=== PATIENT | female | born 1935 | race Caucasian/White ===

== ENCOUNTER 2019-01-03 10:29 | Inpatient (IN) ==
--- NOTE | 2019-01-03 10:36 | Emergency Department Note ---
Disposition Clinical Impression: NSTEMI (non-ST elevated myocardial infarction) CHF exacerbation Qualifiers: Heart failure type: unspecified Qualified Code(s): I50.9 - Heart failure, unspecified Bilateral pneumonia Qualifiers: Pneumonia type: due to unspecified organism Lung location: lower lobe of lung Qualified Code(s): J18.1 - Lobar pneumonia, unspecified organism Disposition: Admitted As Inpatient Referrals: NONE,PCP [Primary Care Provider] - Time of Disposition: 13:37 General Adult HPI - General Stated complaint: EMORY Time Seen by Provider: 01/03/19 10:31 Nursing Notes Reviewed: Yes Vital Signs Reviewed: Yes - History of Present Illness HPI Narrative: 83-year-old female presents emergency department with concern for not feeling well and having chest pain, shortness of breath, inability to lie flat or last few days. Patient when asked about her medical history, states she does not know her medical problems. States that she has seen her doctor in 3 years. Patient states that the chest pain is pleuritic in nature. It does not radiate anywhere. Patient denies any nausea, vomiting, diaphoresis. She does report some mild sputum production, as well as cough, but denies any fever. She does report history of smoking. Patient concerned that her lower extremities are little more swollen than normal. - Related Data Home Medications Medication Instructions Recorded Confirmed No Known Home Drugs 01/03/19 01/03/19 Allergies Allergy/AdvReac Type Severity Reaction Status Date / Time Penicillins [PCN] Allergy Hives Verified 01/03/19 10:44 All systems ED: reviewed and negative except as stated. Review of Systems: As Per HPI Constitutional: Denies: fever Cardiovascular: Reports: chest pain Respiratory: Reports: cough, dyspnea, sputum production Gastrointestinal: Denies: abdominal pain, nausea, vomiting Genitourinary: Denies: dysuria Endocrine: Reports: fatigue Past Medical History - Past Medical History Attestation: Yes The following information was validated with the patient. Medical history: Reports: hypertension Course Vital Signs Temperature 98.2 F 01/03/19 10:40 Pulse Rate 112 01/03/19 10:40 Respiratory Rate 18 01/03/19 10:40 Blood Pressure 134/110 01/03/19 10:40 O2 Sat by Pulse Oximetry 98 01/03/19 10:40 Temperature 98.2 F 01/03/19 10:40 Pulse Rate 98 01/03/19 12:30 Respiratory Rate 16 01/03/19 12:30 Blood Pressure 131/89 01/03/19 12:30 O2 Sat by Pulse Oximetry 98 01/03/19 12:30 Oxygen Delivery Oxygen Delivery Room Air Medical Decision Making - MDM Narrative Medical decision making narrative: 83-year-old female presents emergency department with concern for increasing chest pain, shortness of breath over the last few days. Patient has ST depressions in the lateral leads that are new from previous ECG. Patient was given aspirin here in the emergency department. Chest troponin that was elevated as well as a BNP that was elevated. Obtained a CT angiogram which reveals bilateral pleural effusions with pneumonia is a consideration. Patient has history of smoking. No wheezes on initial lung exam. Believe that patient has evidence of pneumonia with increasing cough and sputum production in the setting of probable COPD as she has been a long-term smoker. We have given Levaquin as well as steroids. Patient was given only one DuoNeb and there is no wheezes on lung exam and patient with ACS, did not want increased demand. Patient was given Lasix here in the emergency department. I spoke with the shipping services sales representative, Dr. Jackson who agreed to be consolable the case. Recommended heparin. Patient has no history of bleeding. Discussed this with family. Patient hemodynamically stable not in acute distress time of admission to the hospitalist Dr. Fung. Chest X-Ray 01/03/19 10:35 IMPRESSION: Probable pulmonary venous hypertension with small left larger than right pleural effusions. Asymmetric airspace disease in the left lung base may represent atelectasis or concurrent pneumonia D/ / Mohinder Chu MD / Mohinder Chu MD Interpreting Provider: Mohinder Chu MD Chest CTA 01/03/19 12:09 IMPRESSION: 1. No pulmonary embolism. 2. Bibasilar consolidation and bilateral pleural effusion; pneumonia is a consideration. 3. Mild mediastinal and right hilar lymph node enlargement presumably reactive. Attention to this on follow-up IV contrast-enhanced CT chest imaging recommended in about 3 months. 4. Emphysema. 5. Cardiomegaly. 6. Calcific atherosclerosis aorta and coronary arteries. 7. Age-indeterminate approximately 60% anterior wedge compression fracture T12. The D/ / Acosta Adams / Acosta Adams Interpreting Provider: Acosta Adams - Lab Data Result diagrams: 01/03/19 10:55 01/03/19 10:55 Lab Results 01/03/19 01/03/19 01/03/19 Range/Units 10:55 10:55 10:55 WBC 4.9 (4.3-11.1) K/mcL RBC 3.31 L (3.82-4.97) M/mcL Hgb 10.5 L (11.5-15.4) g/dL Hct 32.0 L (35.3-44.9) % MCV 96.7 (83.0-100.0) fL MCH 31.7 (28.0-33.3) pg MCHC 32.8 (31.6-35.5) g/dL RDW 12.4 (11.5-14.5) % Plt Count 142 (140-400) K/mcL MPV 10.2 (9.4-12.4) fL Immature Gran % 0.0 (0-4) % Seg Neutrophils % 63.1 % Lymphocytes % 27.6 % Monocytes % 8.3 % Eosinophils % 0.6 % Basophils % 0.4 % Neutrophils # 3.1 (1.6-8.9) K/mcL Lymphocytes # 1.4 (0.6-4.6) K/mcL Monocytes # 0.4 (0.0-1.3) K/mcL Eosinophils # 0.0 (0.0-0.6) K/mcL Basophils # 0.0 (0.0-0.2) K/mcL D-Dimer (0-500) ng/mLFEU Sodium 132 L (136-145) mEq/L Potassium 3.5 (3.5-5.1) mEq/L Chloride 97 L (98-107) mEq/L Carbon Dioxide 26 (23-29) mEq/L BUN 16 (8-23) mg/dL Creatinine 0.65 (0.60-1.20) mg/dL Est GFR ( Amer) > 60 (> 60) Est GFR (Non-Af Amer) > 60 (> 60) BUN/Creatinine Ratio 25 (6-26) Glucose 146 H (70-105) mg/dL Calculated Osmolality 278 L (280-300) Calcium 8.8 (8.6-10.3) mg/dL Troponin I 0.07 H* (< 0.04) ng/mL B-Natriuretic Peptide 821 H (Less than 100) pg/mL TSH 3.523 (0.340-5.600) mcIU/mL 01/03/19 Range/Units 10:55 WBC (4.3-11.1) K/mcL RBC (3.82-4.97) M/mcL Hgb (11.5-15.4) g/dL Hct (35.3-44.9) % MCV (83.0-100.0) fL MCH (28.0-33.3) pg MCHC (31.6-35.5) g/dL RDW (11.5-14.5) % Plt Count (140-400) K/mcL MPV (9.4-12.4) fL Immature Gran % (0-4) % Seg Neutrophils % % Lymphocytes % % Monocytes % % Eosinophils % % Basophils % % Neutrophils # (1.6-8.9) K/mcL Lymphocytes # (0.6-4.6) K/mcL Monocytes # (0.0-1.3) K/mcL Eosinophils # (0.0-0.6) K/mcL Basophils # (0.0-0.2) K/mcL D-Dimer 6672 H (0-500) ng/mLFEU Sodium (136-145) mEq/L Potassium (3.5-5.1) mEq/L Chloride (98-107) mEq/L Carbon Dioxide (23-29) mEq/L BUN (8-23) mg/dL Creatinine (0.60-1.20) mg/dL Est GFR ( Amer) (> 60) Est GFR (Non-Af Amer) (> 60) BUN/Creatinine Ratio (6-26) Glucose (70-105) mg/dL Calculated Osmolality (280-300) Calcium (8.6-10.3) mg/dL Troponin I (< 0.04) ng/mL B-Natriuretic Peptide (Less than 100) pg/mL TSH (0.340-5.600) mcIU/mL - EKG Data EKG #1 EKG attestation: Yes I reviewed and interpreted this EKG. EKG results narrative: 10:40 Heart rate 109 bpm, MS interval 136.6, QRS duration 83 ms, QT 332 ms, left axis deviation. Sinus tachycardia with
[2019-01-03] MEDS ORDERED: *HR* FentaNYL (PF) 100 MCG/2 ML VIAL IVP ONE (11:00)
[2019-01-03] MEDS ORDERED: Ondansetron 4 MG/2 ML VIAL IVP ONE (11:05)
[2019-01-03] MEDS ORDERED: Aspirin 81 MG TAB.CHEW PO ONE (11:05)
[2019-01-03 11:22] LABS: Basophils % 0.4 %; Eosinophils % 0.6 %; Hemoglobin 10.5 g/dL (11.5-15.4); Lymphocytes # 1.4 K/mcL (0.6-4.6); Lymphocytes % 27.6 %; Mean Corpuscular HGB Conc 32.8 g/dL (31.6-35.5); Mean Corpuscular Hemoglobin 31.7 pg (28.0-33.3); Mean Corpuscular Volume 96.7 fL (83.0-100.0); Mean Platelet Volume 10.2 fL (9.4-12.4); Monocytes # 0.4 K/mcL (0.0-1.3); Monocytes % 8.3 %; Neutrophils # 3.1 K/mcL (1.6-8.9); Platelet Count 142 K/mcL (140-400); Red Blood Count 3.31 M/mcL (3.82-4.97); Red Cell Distribution Width 12.4 % (11.5-14.5); Segmented Neutrophils % 63.1 %; White Blood Count 4.9 K/mcL (4.3-11.1)
[2019-01-03 11:40] LABS: BUN/Creatinine Ratio 25 (6-26); Blood Urea Nitrogen 16 mg/dL (8-23); Calcium 8.8 mg/dL (8.6-10.3); Carbon Dioxide 26 mEq/L (23-29); Chloride 97 mEq/L (98-107); Glucose 146 mg/dL (70-105); Osmolality,Calculated 278 (280-300); Potassium 3.5 mEq/L (3.5-5.1); Sodium 132 mEq/L (136-145); eGFR For African Americans > 60 (> 60); eGFR For Non-African Americans > 60 (> 60)
[2019-01-03 11:44] LABS: Troponin I 0.07 ng/mL (< 0.04)
[2019-01-03 11:59] LABS: Thyroid Stimulating Hormone 3.523 mcIU/mL (0.340-5.600)
[2019-01-03] MEDS ORDERED: Isovue-370 500 ML BOTTLE IVP ONE (12:09)
[2019-01-03] MEDS ORDERED: Furosemide 40 MG/4 ML VIAL IVP ONE (13:23)
[2019-01-03] MEDS ORDERED: levoFLOXacin 750 MG/150 ML 750 MG/150 ML BAG IVPB ONE (13:27)
[2019-01-03] MEDS ORDERED: *HR* Heparin 5,000 UNIT/ML VIAL IVP ONE (13:34)
[2019-01-03] MEDS ORDERED: *HR* Heparin 5,000 UNIT/ML VIAL IVP PRN (13:34)
[2019-01-03] MEDS ORDERED: methylPREDNISolone 125 MG/2 ML VIAL IVP ONE (13:36)
[2019-01-03] MEDS ORDERED: Ipratropium/Albuterol Neb 3 ML IH ONE (13:40)
[2019-01-03] MEDS: Heparin 25,000 UNIT/250 ML D5W 25,000 UNIT/250 ML IV.SOLN IVC SCH (13:54)
[2019-01-03 14:03] LABS: Hematocrit 29.2 % (35.3-44.9); Hemoglobin 9.6 g/dL (11.5-15.4); Mean Corpuscular HGB Conc 32.9 g/dL (31.6-35.5); Mean Corpuscular Hemoglobin 31.5 pg (28.0-33.3); Mean Corpuscular Volume 95.7 fL (83.0-100.0); Platelet Count 127 K/mcL (140-400); Red Blood Count 3.05 M/mcL (3.82-4.97); Red Cell Distribution Width 12.4 % (11.5-14.5); White Blood Count 4.5 K/mcL (4.3-11.1)
--- NOTE | 2019-01-03 14:08 | Emergency Department Note ---
Disposition Clinical Impression: NSTEMI (non-ST elevated myocardial infarction) CHF exacerbation Qualifiers: Heart failure type: unspecified Qualified Code(s): I50.9 - Heart failure, unspecified Bilateral pneumonia Qualifiers: Pneumonia type: due to unspecified organism Lung location: lower lobe of lung Qualified Code(s): J18.1 - Lobar pneumonia, unspecified organism Disposition: Admitted As Inpatient Time of Disposition: 14:08 General Adult HPI - General Chief complaint: ED Shortness of Breath/Dyspnea Stated complaint: EMORY Time Seen by Provider: 01/03/19 10:31 Source: patient, EMS - History of Present Illness Pain Scale: 7 - Related Data Home Medications Medication Instructions Recorded Confirmed No Known Home Drugs 01/03/19 01/03/19 Allergies Allergy/AdvReac Type Severity Reaction Status Date / Time Penicillins [PCN] Allergy Hives Verified 01/03/19 10:44 Constitutional: Denies: fever Cardiovascular: Reports: chest pain Respiratory: Reports: cough, dyspnea, sputum production Gastrointestinal: Denies: abdominal pain, nausea, vomiting Genitourinary: Denies: dysuria Endocrine: Reports: fatigue Past Medical History - Past Medical History Medical history: Reports: hypertension - Social History Smoking Status: Current every day smoker Alcohol use: Reports: none Drug use: Reports: none Physical Exam - General General appearance: alert Course Vital Signs Temperature 98.2 F 01/03/19 10:40 Pulse Rate 112 01/03/19 10:40 Respiratory Rate 18 01/03/19 10:40 Blood Pressure 134/110 01/03/19 10:40 O2 Sat by Pulse Oximetry 98 01/03/19 10:40 Temperature 98.2 F 01/03/19 10:40 Pulse Rate 98 01/03/19 12:30 Respiratory Rate 16 01/03/19 12:30 Blood Pressure 131/89 01/03/19 12:30 O2 Sat by Pulse Oximetry 98 01/03/19 12:30 Oxygen Delivery Oxygen Delivery Room Air Medical Decision Making - Lab Data Result diagrams: 01/03/19 13:45 01/03/19 10:55 Lab Results 01/03/19 01/03/19 01/03/19 Range/Units 10:55 10:55 10:55 WBC 4.9 (4.3-11.1) K/mcL RBC 3.31 L (3.82-4.97) M/mcL Hgb 10.5 L (11.5-15.4) g/dL Hct 32.0 L (35.3-44.9) % MCV 96.7 (83.0-100.0) fL MCH 31.7 (28.0-33.3) pg MCHC 32.8 (31.6-35.5) g/dL RDW 12.4 (11.5-14.5) % Plt Count 142 (140-400) K/mcL MPV 10.2 (9.4-12.4) fL Immature Gran % 0.0 (0-4) % Seg Neutrophils % 63.1 % Lymphocytes % 27.6 % Monocytes % 8.3 % Eosinophils % 0.6 % Basophils % 0.4 % Neutrophils # 3.1 (1.6-8.9) K/mcL Lymphocytes # 1.4 (0.6-4.6) K/mcL Monocytes # 0.4 (0.0-1.3) K/mcL Eosinophils # 0.0 (0.0-0.6) K/mcL Basophils # 0.0 (0.0-0.2) K/mcL D-Dimer (0-500) ng/mLFEU Sodium 132 L (136-145) mEq/L Potassium 3.5 (3.5-5.1) mEq/L Chloride 97 L (98-107) mEq/L Carbon Dioxide 26 (23-29) mEq/L BUN 16 (8-23) mg/dL Creatinine 0.65 (0.60-1.20) mg/dL Est GFR ( Amer) > 60 (> 60) Est GFR (Non-Af Amer) > 60 (> 60) BUN/Creatinine Ratio 25 (6-26) Glucose 146 H (70-105) mg/dL Calculated Osmolality 278 L (280-300) Calcium 8.8 (8.6-10.3) mg/dL Troponin I 0.07 H* (< 0.04) ng/mL B-Natriuretic Peptide 821 H (Less than 100) pg/mL TSH 3.523 (0.340-5.600) mcIU/mL 01/03/19 Range/Units 10:55 WBC (4.3-11.1) K/mcL RBC (3.82-4.97) M/mcL Hgb (11.5-15.4) g/dL Hct (35.3-44.9) % MCV (83.0-100.0) fL MCH (28.0-33.3) pg MCHC (31.6-35.5) g/dL RDW (11.5-14.5) % Plt Count (140-400) K/mcL MPV (9.4-12.4) fL Immature Gran % (0-4) % Seg Neutrophils % % Lymphocytes % % Monocytes % % Eosinophils % % Basophils % % Neutrophils # (1.6-8.9) K/mcL Lymphocytes # (0.6-4.6) K/mcL Monocytes # (0.0-1.3) K/mcL Eosinophils # (0.0-0.6) K/mcL Basophils # (0.0-0.2) K/mcL D-Dimer 6672 H (0-500) ng/mLFEU Sodium (136-145) mEq/L Potassium (3.5-5.1) mEq/L Chloride (98-107) mEq/L Carbon Dioxide (23-29) mEq/L BUN (8-23) mg/dL Creatinine (0.60-1.20) mg/dL Est GFR ( Amer) (> 60) Est GFR (Non-Af Amer) (> 60) BUN/Creatinine Ratio (6-26) Glucose (70-105) mg/dL Calculated Osmolality (280-300) Calcium (8.6-10.3) mg/dL Troponin I (< 0.04) ng/mL B-Natriuretic Peptide (Less than 100) pg/mL TSH (0.340-5.600) mcIU/mL Attestation Statement - Attestation Attestation: I reviewed the residents documentation and agree with the residents assessment and plan of care. I have personally had face to face time with the patient. (Brief History, Brief Exam, and MDM) I personally supervised and was present for the rincon/critical portions of the following procedures completed by the resident: EKG 83 yaer old female presents to the ED with complaints chest pain that is pleuritic. She has new ischemic changes with St depressions in V4-6 and an elevated troponin and new pneumonia with elevated BNP. Consulted with cards and they recommend heparin at this time. Admitted to medicine with ABX coverage
[2019-01-03 14:12] LABS: INR 1.1; Prothrombin Time 12.6 Seconds (9.4-12.1)
--- NOTE | 2019-01-03 14:36 | Cardiology Consult Note ---
<Radha Mcfarlane N - Last Filed: 01/03/19 15:19> Date of Encounter: 01/03/19 Time of Encounter: 14:33 Assessment and Plan (1) Elevated troponin Current Visit: Yes Status: Acute Mildly elevated troponin of 0.07 in setting of CHF exacerbation. Concern for ACS/NSTEMI vs. demand ischemia. Patient reports pleuritic chest pain that coincides with onset of her respiratory symptoms. ECG showed ST changes in lateral leads, with T-wave inversions in V4-V6 and changes in V3 that were not present on previous exams. Recommend repeat ECG stat to evaluate for signs of ongoing cardiac ischemia. Trend troponins x3. Continue heparin gtt. NPO order placed to start at midnight in case further cardiac testing is indicated (2) Acute decompensated heart failure Current Visit: Yes Status: Acute Suspect acute exacerbation of CHF in setting of bilateral pneumonia. CXR was significant for probable pulmonary venous hypertension with small left larger than right pleural effusions. Asymmetric airspace disease in the left lung base may represent atelectasis or concurrent pneumonia. CTA demonstrated additional findings of cardiomegaly, as well as calcific atherosclerosis aorta and coronary arteries. BNP was noted to be elevated at 821. Recommend fluid restriction diet, strict I/Os, and diuresis as tolerated. Echocardiogram pending. (3) Hypertension Current Visit: Yes Status: Acute History of hypertension. Review of outpatient records show home mediations of metoprolol ER 50mg and losartan 25mg; however, patient denies any current home medications. Continue to monitor BP at this time, as it is WNL. Anticipate initiation of antihypertensive therapy if patient becomes hypertensive. Qualifiers: Hypertension type: unspecified Qualified Code(s): I10 - Essential (primary) hypertension (4) Bilateral pneumonia Current Visit: Yes Status: Suspected CTA suspicious for acute bilateral pneumonia. Antibiotic therapy per primary team. Qualifiers: Pneumonia type: due to unspecified organism Lung location: lower lobe of lung Qualified Code(s): J18.1 - Lobar pneumonia, unspecified organism Discussion w patient/family: The assessment and plan as outlined above was discussed with the patient and/or family members who expressed understanding and agreement. All questions were answered. Thank you for involving us in the care of your patient. Please call with any questions. History of Present Illness Consult date: 01/03/19 Requesting physician: Isai Troy Consult reason: NSTEMI Chief complaint: Shortness of breath History of present illness: Ms. Díaz is a 83 year old female with a history of hypertension who presented to the ED for evaluation of shortness of breath. Patient states that her symptoms started on Monday when she noticed that she felt short of breath when lying flat, which has progressively worsened. She also reports bilateral lower extremity edema that is worse in the left leg. She states that she is unable to take a deep breath due to chest pain/discomfort. She denies chest pain at rest, but does endorse palpitations. She states that she has never had symptoms like this before, and has had to sleep sitting up due to orthopnea the last few nights. Patient has not been seen by a physician in several years, and recently stopped taking her mediations because she "wants to ". She states that she is unable to do chores around the house other than picking up the newspaper, and states "my house is filthy". ED workup was significant for mildly elevated troponin of 0.07, BNP 821, and d-dimer 6672. CTA of the chest was significant for bibasilar consolidation and bilateral pleural effusion, as well as mediastinal and right hilar lymph node enlargement, emphysema, cardiomegaly, and calcific atherosclerosis aorta and coronary arteries. Patient was started on a heparin gtt due to concern for NSTEMI and admitted to the hospitalist service for ongoing workup and management. Cardiology consult placed for recommendations regarding NSTEMI. Past Med Surg Social Fam HX - Past Medical History Medical history: hypertension Additional medical history: pt states "i don't know" - Social History Smoking Status: Current every day smoker Packs per day: 1 PPD x 70 years Smokeless Tobacco Status: No Alcohol use: none Drug use: none Medications and Allergies Losartan Potassium [Cozaar] 50 mg PO DAILY 01/03/19 [History] Metoprolol Succinate [Toprol Xl] 50 mg PO DAILY 01/03/19 [History] Allergy/AdvReac Type Severity Reaction Status Date / Time Penicillins [PCN] Allergy Hives Verified 01/03/19 10:44 All Systems Review: The remainder of the systems were reviewed and are negative - Constitutional Constitutional: fatigue, no fever(s) - Cardiovascular Cardiovascular: diaphoresis, dyspnea at rest, leg edema, orthopnea, palpitations, no chest pain at rest, no chest pain with exertion, no irregular heart rhythm - Respiratory Respiratory: dyspnea Physical Examination Vital Signs, Last 4 Hours Temp Pulse Resp BP Pulse Ox 01/03/19 14:09 96 16 124/79 97 01/03/19 12:30 98 16 131/89 98 01/03/19 11:30 105 16 147/103 95 01/03/19 10:40 98.2 F 112 18 134/110 98 General: Conversant, Other (mild distress secondary to shortness of breath) HEENT: Atraumatic, Normocephaly, Mucus Membranes Moist Cardiac: Reg Rate and Rhythm (sinus tachycardia), Normal S1 and S2, No Murmur Lungs: No Wheeze, Rales, Rhonchi, Other (diffusely decreased and shallow breath sounds bilaterally) Neuro: Alert and responsive, No focal deficits noted Abdomen: Soft, Non-Tender Skin: No rashes noted on visualized skin Musculoskeletal: No Chest Wall Tenderness Extremities: No Clubbing, No Cyanosis, Normal Pulses, Other (1+ pitting edema LLE; mild pitting edema RLE) Results 01/03/19 13:45 01/03/19 10:55 Lab Results 01/03/19 01/03/19 01/03/19 10:55 10:55 10:55 WBC 4.9 Hgb 10.5 L Hct 32.0 L Plt Count 142 D-Dimer Sodium 132 L Potassium 3.5 Chloride 97 L Carbon Dioxide 26 BUN 16 Creatinine 0.65 Glucose 146 H Calcium 8.8 Troponin I 0.07 H* B-Natriuretic Peptide 821 H TSH 3.523 01/03/19 01/03/19 10:55 13:45 WBC 4.5 Hgb 9.6 L Hct 29.2 L Plt Count 127 L D-Dimer 6672 H Sodium Potassium Chloride Carbon Dioxide BUN Creatinine Glucose Calcium Troponin I B-Natriuretic Peptide TSH Consult Discharge Plan - Plan Referrals: NONE,PCP [Primary Care Provider] - < A - Last Filed: 01/04/19 10:21> Date of Encounter: 01/04/19 - Attending Attestation I have personally performed a face to face evaluation on this patient. I have reviewed and agree with the documented findings and care plan as documented by the resident. History and Exam by me shows: 83-year-old female with past history of hypertension, poor medical follow-up, presented with progressively worsening shortness of breath associated with orthopnea and chest discomforts in the last 4 days BNP 821. Chest x-ray showed pulmonary vascular congestion AAOX3 in NAD at the bedside Hemodynamically stable Cardiopulmonary exam revealed JVD +S1, S2, grade 2/6 apical systolic murmur radiating to the axilla; bibasilar rales Abdomen - tender right upper quadrant Rhythm reviewed - sinus rhythm, T-wave inversion in anterolateral leads Echo shows LVEF of 20% with global and segmental wall motion abnormality , moderate mitral valve regurgitation Impression/plan: Cardiomyopathy. Cardiac catheterization is indicated given low EF, and NSTEMI. Patient clearly stated that she would not want invasive procedures. Besides,she expressed doubts regarding adherence to medication. We will recommend medical management in this time with aspirin 81 mg daily, once euvolemic - metoprolol succinate 25 mg daily, statin, lisinopril 2.5 mg daily. Acute systolic CHF exacerbation. Lasix 40 mg intravenously twice a day. Strict inputs and outputs monitoring. Fluid restricted low-salt diet. Thanks, Blake Espinosa MD FACC Assessment and Plan Discussion w patient/family: The assessment and plan as outlined above was discussed with the patient and/or family members who expressed understanding and agreement. All questions were answered. Thank you for involving us in the care of your patient. Please call with any questions. History of Present Illness History of present illness: Ms. Díaz is a 83 year old female All Systems Review: The remainder of the systems were reviewed and are negative Physical Examination Vital Signs, Last 4 Hours Temp Pulse BP Pulse Ox 01/04/19 07:07 97.8 F 87 116/75 97 Results 01/04/19 04:58 01/04/19 04:58 Lab Results 01/03/19 01/03/19 01/03/19 10:55 10:55 10:55 WBC 4.9 Hgb 10.5 L Hct 32.0 L Plt Count 142 INR D-Dimer Sodium 132 L Potassium 3.5 Chloride 97 L Carbon Dioxide 26 BUN 16 Creatinine 0.65 Glucose 146 H Calcium 8.8 Magnesium Total Bilirubin AST ALT Alkaline Phosphatase Troponin I 0.07 H* B-Natriuretic Peptide 821 H TSH 3.523 01/03/19 01/03/19 01/03/19 10:55 13:45 13:45 WBC 4.5 Hgb 9.6 L Hct 29.2 L Plt Count 127 L INR 1.1 D-Dimer 6672 H Sodium Potassium Chloride Carbon Dioxide BUN Creatinine Glucose Calcium Magnesium Total Bilirubin AST ALT Alkaline Phosphatase Troponin I B-Natriuretic Peptide [facility] 01/03/19 01/03/19 01/04/19 16:35 22:52 04:58 WBC Hgb Hct Plt Count INR D-Dimer Sodium Potassium Chloride Carbon Dioxide BUN Creatinine Glucose Calcium Magnesium Total Bilirubin AST ALT Alkaline Phosphatase Troponin I 0.06 H* 0.06 H* 0.05 H* B-Natriuretic Peptide [facility] 01/04/19 01/04/19 01/04/19 04:58 04:58 04:58 WBC 4.2 L Hgb 9.4 L Hct 28.4 L Plt Count 135 L INR 1.2 D-Dimer Sodium 130 L Potassium 3.6 Chloride 95 L Carbon Dioxide 26 BUN 13 Creatinine 0.65 Glucose 115 H Calcium 8.3 L Magnesium 2.1 Total Bilirubin 0.6 AST 22 ALT 17 Alkaline Phosphatase 81 Troponin I B-Natriuretic Peptide [facility]
--- NOTE | 2019-01-03 15:05 | Internal Med History&Physical ---
Date of Encounter: 01/03/19 Time of Encounter: 15:05 Internal Medicine - H&P: HPI Chief complaint: SOB Admitted From: Home Plans for Post Hospital Care: Home History of present illness: Ms. Díaz is a 83 year old female who has past medical hx of HTN, ? anxiety and depression, falls, ?syncope, who presents with progressive shortness of breath and chest pain. Pt denies prior history of [place] or CAD that she is aware of. Patient states that the chest pain is pleuritic in nature and is non- radiating. She denies N/V, abdominal pain or diarrhea. She admits to being a current smoker and has been since 14years of age. She denies hx of COPD she is aware of and she does not use oxygen at home. She states she has not been to a PCP in 4-5 years which was confirmed by her Daughter. She does not have medical DPOA and is still her own decision maker. Daughter, Karla, seems to think pt may have underlying dementia though not clinically diagnosed. Pt is alert and oriented x 3. She knows she is at [facility], the date, year, and her name and date. She admits to not liking physicians and states she stopped taking her beta radha since October 2018 because she does not like her PCP. She did say she saw Dr. Donahue for years prior to her PCP 5 years ago and liked her. She states she has not taken a shower since "September 17 2017" because her would not let her. Daughter disagrees and states the reason why she had not taken a bath was because of her hx recurrent falls/ "fainting" and not because of her father. Pt lives with her who has a hx of dementia. Pt denies any suicidal ideation or attempt. She is adamant that she does not want any heroic measures. When asked if she would like to have a heart cath she replied "HELL No!" Pt states she is agreeable to having diuretic for CHF and antibiotic for respiratory infection. In ED Cardiology was notified and pt was started on heparin. Troponin 0.07. EKG showed ST changes in lateral leads, with T-wave inversions in V4-V6 and changes in V3 that were not present on previous exams. WBC 4.5, Hgb 9.6 hct 29.2, plt 127. TSH 3.523. PT 12.6, INR 1.1, DIU984, D dimer 6672 Na 132, K 3.5, BUN 16, Cr 0.65. CT angio PE CT/CT angio chest IMPRESSION: 1. No pulmonary embolism. 2. Bibasilar consolidation and bilateral pleural effusion; pneumonia is a consideration. 3. Mild mediastinal and right hilar lymph node enlargement presumably reactive. Attention to this on follow-up IV contrast-enhanced CT chest imaging recommended in about 3 months. 4. Emphysema. 5. Cardiomegaly. 6. Calcific atherosclerosis aorta and coronary arteries. 7. Age-indeterminate approximately 60% anterior wedge compression fracture T12. The Chest x ray XR/XR chest 1V portable IMPRESSION: Probable pulmonary venous hypertension with small left larger than right pleural effusions. Asymmetric airspace disease in the left lung base may represent atelectasis or concurrent pneumonia CODE STATUS DNRCCA/DNI Past Med Surg Social Fam HX - Past Medical History Medical history: hypertension Additional medical history: pt states "i don't know" - Social History Smoking Status: Current every day smoker Alcohol use: none Drug use: none Internal Medicine - H&P: Meds Losartan Potassium [Cozaar] 50 mg PO DAILY 01/03/19 [History] Metoprolol Succinate [Toprol Xl] 50 mg PO DAILY 01/03/19 [History] Allergy/AdvReac Type Severity Reaction Status Date / Time Penicillins [PCN] Allergy Hives Verified 01/03/19 10:44 All Systems PM: A 10-system review of systems was performed and is negative for pertinent findings except as documented above in the HPI. - Constitutional Vitals: Temp Pulse Resp BP Pulse Ox 98.2 F 96 16 124/79 97 01/03/19 10:40 01/03/19 14:09 01/03/19 14:09 01/03/19 14:09 01/03/19 14:09 General appearance: Present: A&O X 3, no acute distress Exam: . - Head Head exam: Present: atraumatic, normocephalic - Eye Eye exam: Present: PERRL, conjuntiva pink, sclera anicteric Pupils: Present: PERRL - Neck Neck exam general surgery: Present: supple, trachea midline. Absent: lymphadenopathy - Respiratory Respiratory exam: Absent: accessory muscle use, CTAB, rales, rhonchi, wheezes Additional comments: Bibasilar crackles - Cardiovascular Cardiovascular exam: Present: RRR, +S1, +S2. Absent: diastolic murmur, gallop, rubs, systolic murmur - GI/Abdominal GI/Abdominal exam: Present: normal bowel sounds, soft, no peritoneal signs. Absent: distended, tenderness - Extremities Exam Extremities exam: Present: pedal edema, warm, radial pulses palpable and symmetrical. Absent: calf tenderness, cyanotic Additional comments: LE extremity dry and skin sloughing off. - Neurological Exam Neurological exam: Present: CN II-XII intact, oriented X3, no focal deficits. Absent: pronater drift, facial droop, speech deficit - Skin Skin exam: Present: dry, intact Internal Med - H&P Results - Labs CBC & Chem 7: 01/03/19 13:45 01/03/19 10:55 Labs: Short CBC 01/03/19 01/03/19 Range/Units 10:55 13:45 WBC 4.9 4.5 (4.3-11.1) K/mcL Hgb 10.5 L 9.6 L (11.5-15.4) g/dL Hct 32.0 L 29.2 L (35.3-44.9) % Plt Count 142 127 L (140-400) K/mcL Neutrophils # 3.1 (1.6-8.9) K/mcL BMP 01/03/19 10:55 Sodium 132 L Potassium 3.5 Chloride 97 L Carbon Dioxide 26 BUN 16 Creatinine 0.65 Glucose 146 H Calcium 8.8 Cardiac Enzymes 01/03/19 Range/Units 10:55 Troponin I 0.07 H* (< 0.04) ng/mL - Impressions ITS Impressions Chest X-Ray 01/03/19 10:35 IMPRESSION: Probable pulmonary venous hypertension with small left larger than right pleural effusions. Asymmetric airspace disease in the left lung base may represent atelectasis or concurrent pneumonia D/ / Mohinder Chu MD / Mohinder Chu MD Interpreting Provider: Mohinder Chu MD Chest CTA 01/03/19 12:09 IMPRESSION: 1. No pulmonary embolism. 2. Bibasilar consolidation and bilateral pleural effusion; pneumonia is a consideration. 3. Mild mediastinal and right hilar lymph node enlargement presumably reactive. Attention to this on follow-up IV contrast-enhanced CT chest imaging recommended in about 3 months. 4. Emphysema. 5. Cardiomegaly. 6. Calcific atherosclerosis aorta and coronary arteries. 7. Age-indeterminate approximately 60% anterior wedge compression fracture T12. The D/ / Acosta Adams / Acosta Adams Interpreting Provider: Acosta Adams - Assessment and Plan (1) NSTEMI (non-ST elevated myocardial infarction) Current Visit: Yes Status: Acute Assessment and plan: Pt is on Heparin. Will cycle troponin. ASA daily and Nitro SL PRN. Cardiology consulted and aware. Pt states she does want a heart cath and daughter affirms that she would refuse it. (2) Bilateral pneumonia Current Visit: Yes Status: Suspected Assessment and plan: on Levaquin 750 mg IV daily. Will check sputum. Qualifiers: Pneumonia type: due to unspecified organism Lung location: lower lobe of lung Qualified Code(s): J18.1 - Lobar pneumonia, unspecified organism (3) Acute decompensated heart failure Current Visit: Yes Status: Acute Assessment and plan: Will order Echo. Will place on Lasix 40 mg IV BID Will monitor I/O's, place on fluid and salt restriction and check weights daily. (4) Elevated troponin Current Visit: Yes Status: Acute Assessment and plan: Seen by cardiology and will trend troponin. (5) Hypertension Current Visit: Yes Status: Acute Assessment and plan: Pt states she stopped taking her Metoprolol since October Qualifiers: Hypertension type: unspecified Qualified Code(s): I10 - Essential (primary) hypertension (6) Impaired decision making Current Visit: Yes Status: Suspected Assessment and plan: Pt Alert and oriented x 3. NAD. Pt appears to be appropriate with all her responses and is coherent. She states multiple times she does not want aggressive measure. Daughter states she has dementia though not medically determined by a physician. PT states her sonr who is the only other living child has renal disease and DM and very ill. Daughter confirmed this. Psych consulted to see and help assess medical decision making capacity. (7) Risk for falls Current Visit: Yes Status: Acute Assessment and plan: Will write fall precautions - Time Spent With Patient Total time spent is greater than 50% in coordination of care (as documented) at patient's floor/unit and/or counseling patient: less than 15 minutes
[2019-01-03] MEDS ORDERED: Nitroglycerin 0.4 MG TAB.SUBL SL PRN (16:53)
[2019-01-03] MEDS ORDERED: Perflutren Lipid Microsphere 1.3 ML in 0.9 % Sodium Chloride 8.7 ML IVP ONE (18:16)
[2019-01-03] MEDS: *HR* Heparin 5,000 UNIT/ML VIAL IVP PRN (21:01)
[2019-01-03 22:57] LABS: Bilirubin,Urine Negative (Negative); Blood,Urine Negative (Negative); Clarity,Urine Clear (Clear); Color,Urine Yellow (Yellow); Glucose,Urine (UA) Normal (Normal); Ketones,Urine Negative (Negative); Leukocyte Esterase,Urine Trace (Negative); Nitrite,Urine Negative (Negative); Protein,Urine Negative (Neg-Trace); Specific Gravity,Urine > 1.030 (1.010-1.025); Urobilinogen,Urine Normal (Normal)
[2019-01-03 23:04] LABS: Bacteria,Urine None Seen per hpf (None-Few); Hyaline Casts,Urine None Seen per lpf (None-Few); RBC,Urine 0-3 per hpf (0-3); Squamous Epithelial Cell,Urine Moderate per lpf (None-Few)
[2019-01-04] MEDS: Melatonin 3 MG TABLET PO PRN (03:54)
[2019-01-04] MEDS: Simethicone 80 MG TAB.CHEW PO PRN ×2 (03:54→10:12)
[2019-01-04 06:07] LABS: Basophils % 0.2 %; Eosinophils % 0.7 %; Hematocrit 28.4 % (35.3-44.9); Hemoglobin 9.4 g/dL (11.5-15.4); Immature Granulocytes % 0.2 % (0-4); Lymphocytes # 1.3 K/mcL (0.6-4.6); Lymphocytes % 31.3 %; Mean Corpuscular HGB Conc 33.1 g/dL (31.6-35.5); Mean Corpuscular Hemoglobin 31.3 pg (28.0-33.3); Mean Corpuscular Volume 94.7 fL (83.0-100.0); Mean Platelet Volume 10.8 fL (9.4-12.4); Monocytes # 0.3 K/mcL (0.0-1.3); Monocytes % 8.2 %; Neutrophils # 2.5 K/mcL (1.6-8.9); Platelet Count 135 K/mcL (140-400); Red Cell Distribution Width 12.4 % (11.5-14.5); Segmented Neutrophils % 59.4 %; White Blood Count 4.2 K/mcL (4.3-11.1)
[2019-01-04 06:15] LABS: INR 1.2; Prothrombin Time 13.5 Seconds (9.4-12.1)
[2019-01-04 06:25] LABS: Alanine Aminotransferase 17 Units/L (7-52); Albumin 3.3 g/dL (3.5-5.7); Albumin/Globulin Ratio 1.1 (1.1-2.2); Alkaline Phosphatase 81 Units/L (34-104); Aspartate Amino Transferase 22 Units/L (13-39); BUN/Creatinine Ratio 20 (6-26); Bilirubin,Total 0.6 mg/dL (0.3-1.0); Blood Urea Nitrogen 13 mg/dL (8-23); Calcium 8.3 mg/dL (8.6-10.3); Carbon Dioxide 26 mEq/L (23-29); Chloride 95 mEq/L (98-107); Globulin 3.1 g/dL (2.4-3.5); Glucose 115 mg/dL (70-105); Magnesium 2.1 mg/dL (1.6-2.6); Osmolality,Calculated 271 (280-300); Potassium 3.6 mEq/L (3.5-5.1); Sodium 130 mEq/L (136-145); Total Protein 6.4 g/dL (6.4-8.9); eGFR For African Americans > 60 (> 60); eGFR For Non-African Americans > 60 (> 60)
[2019-01-04] MEDS ORDERED: Acetaminophen IV 500 MG/50 ML INFUS..BTL IVPB ONE (06:54)
[2019-01-04] MEDS ORDERED: Ondansetron 4 MG/2 ML VIAL IVP PRN (06:55)
--- NOTE | 2019-01-04 08:43 | Cardiology Progress Note ---
<Blake Espinosa A - Last Filed: 01/04/19 10:22> Date of Encounter: 01/04/19 Assessment and Plan Discussion w patient/family: The assessment and plan as outlined above was discussed with the patient and/or family members who expressed understanding and agreement. All questions were answered. Thank you for involving us in the care of your patient. Please call with any questions. Objective Vital Signs, Last 4 Hours Temp Pulse BP Pulse Ox 01/04/19 07:07 97.8 F 87 116/75 97 Results 01/04/19 04:58 01/04/19 04:58 Lab Results 01/03/19 01/03/19 01/03/19 10:55 10:55 10:55 WBC 4.9 Hgb 10.5 L Hct 32.0 L Plt Count 142 INR D-Dimer Sodium 132 L Potassium 3.5 Chloride 97 L Carbon Dioxide 26 BUN 16 Creatinine 0.65 Glucose 146 H Calcium 8.8 Magnesium Total Bilirubin AST ALT Alkaline Phosphatase Troponin I 0.07 H* B-Natriuretic Peptide 821 H TSH 3.523 01/03/19 01/03/19 01/03/19 10:55 13:45 13:45 WBC 4.5 Hgb 9.6 L Hct 29.2 L Plt Count 127 L INR 1.1 D-Dimer 6672 H Sodium Potassium Chloride Carbon Dioxide BUN Creatinine Glucose Calcium Magnesium Total Bilirubin AST ALT Alkaline Phosphatase Troponin I B-Natriuretic Peptide TSH 01/03/19 01/03/19 01/04/19 16:35 22:52 04:58 WBC Hgb Hct Plt Count INR D-Dimer Sodium Potassium Chloride Carbon Dioxide BUN Creatinine Glucose Calcium Magnesium Total Bilirubin AST ALT Alkaline Phosphatase Troponin I 0.06 H* 0.06 H* 0.05 H* B-Natriuretic Peptide TSH 01/04/19 01/04/19 01/04/19 04:58 04:58 04:58 WBC 4.2 L Hgb 9.4 L Hct 28.4 L Plt Count 135 L INR 1.2 D-Dimer Sodium 130 L Potassium 3.6 Chloride 95 L Carbon Dioxide 26 BUN 13 Creatinine 0.65 Glucose 115 H Calcium 8.3 L Magnesium 2.1 Total Bilirubin 0.6 AST 22 ALT 17 Alkaline Phosphatase 81 Troponin I B-Natriuretic Peptide [facility] Consult Discharge Plan - Plan Referrals: NONE,PCP [Primary Care Provider] - - Attending Attestation I have personally performed a face to face evaluation on this patient. I have reviewed and agree with the documented findings and care plan as documented by the resident. History and Exam by me shows: 83-year-old female with past history of hypertension, poor medical follow-up, presented with progressively worsening shortness of breath associated with orthopnea and chest discomforts in the last 4 days BNP 821. Chest x-ray showed pulmonary vascular congestion AAOX3 in NAD at the bedside Hemodynamically stable Cardiopulmonary exam revealed JVD +S1, S2, grade 2/6 apical systolic murmur radiating to the axilla; bibasilar rales Abdomen - tender right upper quadrant Rhythm reviewed - sinus rhythm, T-wave inversion in anterolateral leads Echo shows LVEF of 20% with global and segmental wall motion abnormality , moderate mitral valve regurgitation Impression/plan: Cardiomyopathy. Cardiac catheterization is indicated given low EF, and NSTEMI. Patient clearly stated that she would not want invasive procedures. Besides,she expressed doubts regarding adherence to medication. We will recommend medical management in this time with aspirin 81 mg daily, once euvolemic - metoprolol succinate 25 mg daily, statin, lisinopril 2.5 mg daily. Acute systolic CHF exacerbation. Lasix 40 mg intravenously twice a day. Strict inputs and outputs monitoring. Fluid restricted low-salt diet. Thanks, Blake Espinosa MD [facility] <Radha Mcfarlane - Last Filed: 01/04/19 11:14> Date of Encounter: 01/04/19 Time of Encounter: 08:42 Assessment and Plan (1) Acute decompensated heart failure Current Visit: Yes Status: Acute Patient reports continued shortness of breath, orthopnea, and bilateral lower extremity edema. She reports no improvement in her symptoms thus far. CXR was significant for probable pulmonary venous hypertension with small left larger than right pleural effusions. Asymmetric airspace disease in the left lung base may represent atelectasis or concurrent pneumonia. CTA demonstrated a dditional findings of cardiomegaly, as well as calcific atherosclerosis aorta and coronary arteries. BNP was noted to be elevated at 821. Echocardiogram performed on 01/04/2019 demonstrated the following: LVEF 20%. Severe global and segmental left ventricular systolic dysfunction. Mild left ventricular diastolic dysfunction. Mildly dilated left atrium. Normal right ventricular structure with mild hypokinesis. Mild-moderate mitral regurgitation. Mild tricuspid regurgitation. Mild pulmonic regurgitation. Mild pulmonary hypertension. Moderate pleural effusion and ascites. Due to severity of her symptoms, ischemic changes on ECG, and new CHF, [facility] was recommended for further evaluation/intervention. This was discussed with the patient; however, she states "I don't think I could do that". The option of medical management was discussed, and patient stated that she was willing to take daily medications for this problem. Recommendations: - Continue beta radha started yesterday per primary team; anticipate transition to toprol XL prior to hospital discharge. - Continue aspirin and beta radha. - Start lisinopril 2.5mg daily. - Continue fluid restriction diet, strict I/Os, and daily weight. - Repeat BMP this evening to monitor for electrolyte abnormalities. - Patient expresses tenderness to palpation in the left lower extremity, which demonstrates greater edema than the right - consider lower extremity doppler ultrasound to r/o DVT. (2) NSTEMI (non-ST elevated myocardial infarction) Current Visit: Yes Status: Acute Mildly elevated troponin of 0.07 in setting of CHF exacerbation. Suspect due to combination of demand ischemia from acute decompensated CHF, as well as underlying CAD. Patient reports pleuritic chest pain that coincides with onset of her respiratory symptoms. ECG showed ST changes in lateral leads, with T-wave inversions in V4-V6 and changes in V3 that were not present on previous exams. Overnight, troponin has been adynamic, and patient reports no ongoing chest pain. Recommend continuing heparin gtt for 48 hours. Start plavix 75mg daily. (3) Hypertension Current Visit: Yes Status: Acute History of hypertension. Review of outpatient records show home mediations of metoprolol ER 50mg and losartan 25mg; however, patient stopped taking these medications in October. BP currently WNL. Continue lisinopril 2.5mg and lopressor 12.5mg BID. Anticipate transitioning from lopressor to toprol XL 25mg daily prior to hospital discharge. Qualifiers: Hypertension type: unspecified Qualified Code(s): I10 - Essential (primary) hypertension Discussion w patient/family: The assessment and plan as outlined above was discussed with the patient and/or family members who expressed understanding and agreement. All questions were answered. Thank you for involving us in the care of your patient. Please call with any questions. Subjective Principal diagnosis: Acute CHF Interval history: Ms. Díaz was seen and evaluated at the bedside this morning. She reports no improvement in her symptoms, and states that she was unable to sleep last night. She states that she wants to go home and says that she is sorry she came to the hospital, even though she was feeling so badly. Per review of nursing notes, patient repeatedly stated that she was not interested in un dergoing LHC; NPO order cancelled per patient request. No other significant overnight events noted. Objective Vital Signs, Last 4 Hours Temp Pulse Resp BP Pulse Ox 01/04/19 07:07 97.8 F 87 116/75 97 01/04/19 04:59 97.5 F L 87 16 116/77 96 General: Conversant, No Apparent Distress HEENT: Atraumatic, Normocephaly, Mucus Membranes Moist Neck: No JVD, Normal carotid pulses Cardiac: Reg Rate and Rhythm, Normal S1 and S2, No Murmur Lungs: No Wheeze, Rales, Rhonchi, Other (diffusely decreased breath sounds bilaterally) Neuro: Alert and responsive, No focal deficits noted Abdomen: Soft, Other (tender to palpation RUQ) Skin: No rashes noted on visualized skin Musculoskeletal: No Chest Wall Tenderness Extremities: No Clubbing, No Cyanosis, Normal Pulses, Other (bilateral LE edema worse on left; left leg tender) Results 01/04/19 04:58 01/04/19 04:58 Lab Results 01/03/19 01/03/19 01/03/19 10:55 10:55 10:55 WBC 4.9 Hgb 10.5 L Hct 32.0 L Plt Count 142 INR D-Dimer Sodium 132 L Potassium 3.5 Chloride 97 L Carbon Dioxide 26 BUN 16 Creatinine 0.65 Glucose 146 H Calcium 8.8 Magnesium Total Bilirubin AST ALT Alkaline Phosphatase Troponin I 0.07 H* B-Natriuretic Peptide 821 H TSH 3.523 01/03/19 01/03/19 01/03/19 10:55 13:45 13:45 WBC 4.5 Hgb 9.6 L Hct 29.2 L Plt Count 127 L INR 1.1 D-Dimer 6672 H Sodium Potassium Chloride Carbon Dioxide BUN Creatinine Glucose Calcium Magnesium Total Bilirubin AST ALT Alkaline Phosphatase Troponin I B-Natriuretic Peptide TSH 01/03/19 01/03/19 01/04/19 16:35 22:52 04:58 WBC Hgb Hct Plt Count INR D-Dimer Sodium Potassium Chloride Carbon Dioxide BUN Creatinine Glucose Calcium Magnesium Total Bilirubin AST ALT Alkaline Phosphatase Troponin I 0.06 H* 0.06 H* 0.05 H* B-Natriuretic Peptide TSH 01/04/19 01/04/19 01/04/19 04:58 04:58 04:58 WBC 4.2 L Hgb 9.4 L Hct 28.4 L Plt Count 135 L INR 1.2 D-Dimer Sodium 130 L Potassium 3.6 Chloride 95 L Carbon Dioxide 26 BUN 13 Creatinine 0.65 Glucose 115 H Calcium 8.3 L Magnesium 2.1 Total Bilirubin 0.6 AST 22 ALT 17 Alkaline Phosphatase 81 Troponin I B-Natriuretic Peptide TSH
[2019-01-04] MEDS ORDERED: Furosemide 40 MG/4 ML VIAL IVP SCH (09:00)
[2019-01-04] MEDS: *HR* Heparin 5,000 UNIT/ML VIAL IVP PRN (10:05)
[2019-01-04] MEDS: Aspirin 81 MG TAB.CHEW PO SCH (10:05)
[2019-01-04] MEDS: Furosemide 40 MG TABLET PO SCH ×2 (10:12→17:19)
--- NOTE | 2019-01-04 11:32 | Consult Note ---
Date of Encounter: 01/04/19 Time of Encounter: 10:00 History of Present Illness Requesting Physician: Maria G Fung Reason for consult: Medical decision/capacity assessment History of present illness: Ms. Díaz is a 83 year old female who has past medical hx of HTN,anxiety and depression, falls, syncope, who presents with progressive shortness of breath and chest pain. Pt denies prior history of NH or CAD that she is aware of. Patient states that the chest pain is pleuritic in nature and is non-radiating. She denies N/V, abdominal pain or diarrhea. She admits to being a current smoker and has been since 14years of age. She denies hx of COPD she is aware of and she does not use oxygen at home. Her team has recommended a cardiac catheterization however she is declining this and psychiatry has been consult it to help assess medical decision-making capacity. This morning patient was calm and sitting up in bed watching television. She was cooperative with my assessment. She was alert and oriented to the month, year, her name, the place she is at, the situation of why she is here. According to her daughter she does have some short-term memory loss at times. She reports that she has some sadness related to her physical deterioration but no suicidal or homicidal thoughts, ideations, or plans. She denies any auditory or visual hallucinations. She reports occasional anxiety with worry particularly when she feels short of breath. She did have her oxygen off and in her hand when I went into the room to see her. In terms of her understanding of the recommended procedure. She has a good understanding of what they are recommending. She understands more details to the process than most patients understanding of the entry point. She is well aware of the risks, including leading or dislodging and a clot. She is concerned about these risks and feels that given that she does not want heroic measures taken to save her life that this is not worth the risk. She understands that if she does not go through wi th the cardiac catheterization there could be a clots or plaque or obstruction that could be treated by the procedure which would continue to grow and perhaps lead to another myocardial infarction or other serious potentially fatal sequelae. Given her good understanding of the procedure being recommended, the potential benefits of the procedure, and the risks of not having the procedure, I am of the opinion that she does have capacity to make this medical decision to decline treatment. CC: Maria G Kc Kenton Past Med Surg Social Fam HX - Past Medical History Medical history: hypertension - Past Surgical History Surgical History: cholecystectomy - Social History Smoking Status: Current every day smoker Smokeless Tobacco Status: No Alcohol use: none Drug use: none - Family History Mother Living Status: Age at : 69 Cause of : NH Hx Family Cardiac Disorders: Yes Medications & Allergies Losartan Potassium [Cozaar] 50 mg PO DAILY 01/03/19 [History] Metoprolol Succinate [Toprol Xl] 50 mg PO DAILY 01/03/19 [History] Allergy/AdvReac Type Severity Reaction Status Date / Time Penicillins [PCN] Allergy Hives Verified 01/03/19 10:44 Psychiatry Exam - Constitutional Vitals: Temp Pulse Resp BP Pulse Ox 97.8 F 87 16 116/75 97 01/04/19 07:07 01/04/19 07:07 01/04/19 04:59 01/04/19 07:07 01/04/19 07:07 Results - Labs Labs: Laboratory Last Values WBC 4.2 K/mcL (4.3-11.1) L 01/04/19 04:58 RBC 3.00 M/mcL (3.82-4.97) L 01/04/19 04:58 Hgb 9.4 g/dL (11.5-15.4) L 01/04/19 04:58 Hct 28.4 % (35.3-44.9) L 01/04/19 04:58 MCV 94.7 fL (83.0-100.0) 01/04/19 04:58 MCH 31.3 pg (28.0-33.3) 01/04/19 04:58 MCHC 33.1 g/dL (31.6-35.5) 01/04/19 04:58 RDW 12.4 % (11.5-14.5) 01/04/19 04:58 Plt Count 135 K/mcL (140-400) L 01/04/19 04:58 MPV 10.8 fL (9.4-12.4) 01/04/19 04:58 Immature Gran % 0.2 % (0-4) 01/04/19 04:58 Seg Neutrophils % 59.4 % 01/04/19 04:58 31.3 % 01/04/19 04:58 8.2 % 01/04/19 04:58 0.7 % 01/04/19 04:58 0.2 % 01/04/19 04:58 2.5 K/mcL (1.6-8.9) 01/04/19 04:58 1.3 K/mcL (0.6-4.6) 01/04/19 04:58 0.3 K/mcL (0.0-1.3) 01/04/19 04:58 0.0 K/mcL (0.0-0.6) 01/04/19 04:58 0.0 K/mcL (0.0-0.2) 01/04/19 04:58 PT 13.5 Seconds (9.4-12.1) H 01/04/19 04:58 INR 1.2 01/04/19 04:58 6672 ng/mLFEU (0-500) H 01/03/19 10:55 Heparin Anti-Xa, Unfract 0.20 IU/mL (0.30-0.70) L 01/04/19 09:21 Sodium 130 mEq/L (136-145) L 01/04/19 04:58 Potassium 3.6 mEq/L (3.5-5.1) 01/04/19 04:58 Chloride 95 mEq/L (98-107) L 01/04/19 04:58 Carbon Dioxide 26 mEq/L (23-29) 01/04/19 04:58 BUN 13 mg/dL (8-23) 01/04/19 04:58 0.65 mg/dL (0.60-1.20) 01/04/19 04:58 Est GFR ( Amer) > 60 (> 60) 01/04/19 04:58 Est GFR (Non-Af Amer) > 60 (> 60) 01/04/19 04:58 20 (6-26) 01/04/19 04:58 Glucose 115 mg/dL (70-105) H 01/04/19 04:58 271 (280-300) L 01/04/19 04:58 Calcium 8.3 mg/dL (8.6-10.3) L 01/04/19 04:58 Magnesium 2.1 mg/dL (1.6-2.6) 01/04/19 04:58 0.6 mg/dL (0.3-1.0) 01/04/19 04:58 AST 22 Units/L (13-39) 01/04/19 04:58 ALT 17 Units/L (7-52) 01/04/19 04:58 81 Units/L (34-104) 01/04/19 04:58 0.05 ng/mL (< 0.04) H* 01/04/19 04:58 B-Natriuretic Peptide 821 pg/mL (Less than 100) H 01/03/19 10:55 6.4 g/dL (6.4-8.9) 01/04/19 04:58 3.3 g/dL (3.5-5.7) L 01/04/19 04:58 3.1 g/dL (2.4-3.5) 01/04/19 04:58 1.1 (1.1-2.2) 01/04/19 04:58 TSH 3.523 mcIU/mL (0.340-5.600) 01/03/19 10:55 Yellow (Yellow) 01/03/19 22:44 Clear (Clear) 01/03/19 22:44 6.0 pH Units (5.0-8.0) 01/03/19 22:44 Ur Specific Flom > 1.030 (1.010-1.025) H 01/03/19 22:44 Negative mg/dL (Neg-Trace) 01/03/19 22:44 Normal mg/dL (Normal) 01/03/19 22:44 Negative mg/dL (Negative) 01/03/19 22:44 Negative (Negative) 01/03/19 22:44 Negative (Negative) 01/03/19 22:44 Negative (Negative) 01/03/19 22:44 Normal mg/dL (Normal) 01/03/19 22:44 Ur Leukocyte Esterase Trace (Negative) H 01/03/19 22:44 0-3 per hpf (0-3) 01/03/19 22:44 5-15 per hpf (0-3) H 01/03/19 22:44 Ur Squamous Epith Cells Moderate per lpf (None-Few) H 01/03/19 22:44 None Seen per hpf (None-Few) 01/03/19 22:44 Hyaline Casts None Seen per lpf (None-Few) 01/03/19 22:44 Ur Culture Indicated? YES (NO) A 01/03/19 22:44 - Impressions Impressions Chest CTA 01/03/19 12:09 IMPRESSION: 1. No pulmonary embolism. 2. Bibasilar consolidation and bilateral pleural effusion; pneumonia is a consideration. 3. Mild mediastinal and right hilar lymph node enlargement presumably reactive. Attention to this on follow-up IV contrast-enhanced CT chest imaging recommended in about 3 months. 4. Emphysema. 5. Cardiomegaly. 6. Calcific atherosclerosis aorta and coronary arteries. 7. Age-indeterminate approximately 60% anterior wedge compression fracture T12. The D/ / Acosta Adams / Acosta Adams Interpreting Provider: Acosta Adams Echocardiogram 01/03/19 14:39 Impressions: LVEF 20%. Severe global and segmental left ventricular systolic dysfunction. Mild left ventricular diastolic dysfunction. Mildly dilated left atrium. Normal right ventricular structure with mild hypokinesis. Mild-moderate mitral regurgitation. Mild tricuspid regurgitation. Mild pulmonic regurgitation. Mild pulmonary hypertension. Moderate pleural effusion and ascites. Left Ventricular Wall Motion: Rest Echo Findings The mid inferior, basal inferior, mid anterior, basal anterior, mid inferior septal, basal inferior septal, mid anterior lateral, basal anterior lateral, mid anterior septal, mid inferior lateral, basal anterior septal and basal inferior lateral lyon were hypokinetic. The apex, apical inferior, apical anterior, apical septal and apical lateral lyon were akinetic. Findings: Study Quality * Technically adequate exam. ECG Findings * Normal sinus rhythm. Left Ventricle * LVEF 20%. * Normal LV chamber size, wall thickness. * Severe global and segmental left ventricular systolic dysfunction. * Mild left ventricular diastolic dysfunction. * There is no LV thrombus. * Definity echo contrast was used. Right Ventricle * Normal right ventricular structure with mild hypokinesis. Left Atrium * Mildly dilated left atrium. Right Atrium * Normal right atrial size. Interatrial Septum * Interatrial septum not well evaluated. Aortic Valve * Moderately calcified aortic valve leaflets. * No aortic stenosis. * No aortic regurgitation. Mitral Valve * Mildly calcified mitral valve leaflets. * Mild-moderate mitral regurgitation. * No mitral stenosis. Tricuspid Valve * Normal tricuspid valve structure. * No tricuspid stenosis. * Mild tricuspid regurgitation. * Estimated RVSP is 41 mmHg. * Estimated RA pressure is 8 mmHg. * Mild pulmonary hypertension. Pulmonic Valve * Pulmonic valve is not well visualized. * No pulmonic stenosis. * Mild pulmonic regurgitation. Aorta * Normally sized aortic root. Pericardium * The pericardium appears normal. IVC * The IVC is not dilated. * < 50% respiratory change. Pleural Effusion * Moderate pleural effusion and ascites. Consult Discharge Plan - Plan Referrals: NONE,PCP [Primary Care Provider] -
--- NOTE | 2019-01-04 13:03 | Internal Med Progress Note ---
Hospitalist Progress Note - Encounter Date of Encounter: 01/04/19 Time of Encounter: 12:56 - Subjective Interval History: Pt states she is feeling better. SOB much improved. She denies chest pain this am. LE slowly improving. She denies fever, chills, N/V or diarrhea. - Exam Vitals: Temp Pulse Resp BP Pulse Ox 97.8 F 82 16 107/55 97 01/04/19 07:07 01/04/19 11:34 01/04/19 04:59 01/04/19 11:34 01/04/19 11:34 Exam: . - Assessment and Plan (1) NSTEMI (non-ST elevated myocardial infarction) Current Visit: Yes Status: Acute Assessment and Plan: Pt is on Heparin. Troponin 0.06--> 0.06-->0.05. ASA daily and Nitro SL PRN. Cardiology and on board and started pt on Atorvastatin, plavix, Metoprolol, and Lisinopril. Pt states she does not want a heart cath and daughter affirms that she would refuse it. Echo cardiogram is abnormal EV/EV echocardiogram w enhance Impressions: LVEF 20%. Severe global and segmental left ventricular systolic dysfunction. Mild left ventricular diastolic dysfunction. Mildly dilated left atrium. Normal right ventricular structure with mild hypokinesis. Mild-moderate mitral regurgitation. Mild tricuspid regurgitation. Mild pulmonic regurgitation. Mild pulmonary hypertension. Moderate pleural effusion and ascites. (2) Bilateral pneumonia Current Visit: Yes Status: Suspected Assessment and Plan: on Levaquin 750 mg IV daily. Sputum culture ordered but patient is not able to give a sample. (3) Acute decompensated heart failure Current Visit: Yes Status: Acute Assessment and Plan: Will continue on Lasix 40 mg IV BID. Will monitor I/O's, continue on fluid and salt restriction, and check weights daily. Echocardiogram abnormal EV/EV echocardiogram w enhance Impressions: LVEF 20%. Severe global and segmental left ventricular systolic dysfunction. Mild left ventricular diastolic dysfunction. Mildly dilated left atrium. Normal right ventricular structure with mild hypokinesis. Mild-moderate mitral regurgitation. Mild tricuspid regurgitation. Mild pulmonic regurgitation. Mild pulmonary hypertension. Moderate pleural effusion and ascites. (4) Elevated troponin Current Visit: Yes Status: Acute Assessment and Plan: Troponin trending down. Possible NSTEMI but pt refusing cath (5) Hypertension Current Visit: Yes Status: Acute Assessment and Plan: Pt states she stopped taking her Metoprolol since October because she did not trust her physician. (6) Impaired decision making Current Visit: Yes Status: Suspected Assessment and Plan: Pt Alert and oriented x 3. NAD. Pt appears to be appropriate with all her responses and is coherent. She states multiple times she does not want aggressive measure. Daughter states she has dementia though not medically determined by a physician. PT states her son who is the only other living child has renal disease and DM and very ill. Daughter confirmed this. Psych consulted to see and help assess medical decision making capacity. (7) Risk for falls Current Visit: Yes Status: Acute Assessment and Plan: Continue on fall precautions DVT Prophylaxis: Heparin - Summary of Assessment and Plan Summary of Assessment and Plan: History of present illness: Dr. Lazo Ms. Díaz is a 83 year old female who has past medical hx of HTN, ? anxiety and depression, falls, ?syncope, who presents with progressive shortness of breath and chest pain. Pt denies prior history of [place] or CAD that she is aware of. Patient states that the chest pain is pleuritic in nature and is non- radiating. She denies N/V, abdominal pain or diarrhea. She admits to being a current smoker and has been since 14years of age. She denies hx of COPD she is aware of and she does not use oxygen at home. - Time Spent with Patient Total time spent is greater than 50% in coordination of care (as documented) at patient's floor/unit and/or counseling patient: less than 15 minutes Plan of Care Discussed with: patient Internal Medicine: Result - Labs CBC & Chem 7: 01/04/19 04:58 01/04/19 04:58 Labs: Short CBC 01/03/19 01/04/19 Range/Units 13:45 04:58 WBC 4.5 4.2 L (4.3-11.1) K/mcL Hgb 9.6 L 9.4 L (11.5-15.4) g/dL Hct 29.2 L 28.4 L (35.3-44.9) % Plt Count 127 L 135 L (140-400) K/mcL Neutrophils # 2.5 (1.6-8.9) K/mcL BMP 01/04/19 04:58 Sodium 130 L Potassium 3.6 Chloride 95 L Carbon Dioxide 26 BUN 13 Creatinine 0.65 Glucose 115 H Calcium 8.3 L Cardiac Enzymes 01/03/19 01/03/19 01/04/19 Range/Units 16:35 22:52 04:58 Troponin I 0.06 H* 0.06 H* 0.05 H* (< 0.04) ng/mL Liver Function 01/04/19 Range/Units 04:58 Total Bilirubin 0.6 (0.3-1.0) mg/dL AST 22 (13-39) Units/L ALT 17 (7-52) Units/L Alkaline Phosphatase 81 (34-104) Units/L Albumin 3.3 L (3.5-5.7) g/dL Urine 01/03/19 Range/Units 22:44 Urine Color Yellow (Yellow) Urine Clarity Clear (Clear) Urine pH 6.0 (5.0-8.0) pH Units Ur Specific Steele > 1.030 H (1.010-1.025) Urine Protein Negative (Neg-Trace) mg/dL Urine Glucose (UA) Normal (Normal) mg/dL - ABG Interpretation ABG results: PT/INR, D-dimer PT 13.5 Seconds (9.4-12.1) H 01/04/19 04:58 6672 ng/mLFEU (0-500) H 01/03/19 10:55 - Impressions Impressions Chest CTA 01/03/19 12:09 IMPRESSION: 1. No pulmonary embolism. 2. Bibasilar consolidation and bilateral pleural effusion; pneumonia is a consideration. 3. Mild mediastinal and right hilar lymph node enlargement presumably reactive. Attention to this on follow-up IV contrast-enhanced CT chest imaging recommended in about 3 months. 4. Emphysema. 5. Cardiomegaly. 6. Calcific atherosclerosis aorta and coronary arteries. 7. Age-indeterminate approximately 60% anterior wedge compression fracture T12. The D/ / Acosta Adams / Acosta Adams Interpreting Provider: Acosta Adams Echocardiogram 01/03/19 14:39 Impressions: LVEF 20%. Severe global and segmental left ventricular systolic dysfunction. Mild left ventricular diastolic dysfunction. Mildly dilated left atrium. Normal right ventricular structure with mild hypokinesis. Mild-moderate mitral regurgitation. Mild tricuspid regurgitation. Mild pulmonic regurgitation. Mild pulmonary hypertension. Moderate pleural effusion and ascites. Left Ventricular Wall Motion: Rest Echo Findings The mid inferior, basal inferior, mid anterior, basal anterior, mid inferior septal, basal inferior septal, mid anterior lateral, basal anterior lateral, mid anterior septal, mid inferior lateral, basal anterior septal and basal inferior lateral lyon were hypokinetic. The apex, apical inferior, apical anterior, apical septal and apical lateral lyon were akinetic. Findings: Study Quality * Technically adequate exam. ECG Findings * Normal sinus rhythm. Left Ventricle * LVEF 20%. * Normal LV chamber size, wall thickness. * Severe global and segmental left ventricular systolic dysfunction. * Mild left ventricular diastolic dysfunction. * There is no LV thrombus. * Definity echo contrast was used. Right Ventricle * Normal right ventricular structure with mild hypokinesis. Left Atrium * Mildly dilated left atrium. Right Atrium * Normal right atrial size. Interatrial Septum * Interatrial septum not well evaluated. Aortic Valve * Moderately calcified aortic valve leaflets. * No aortic stenosis. * No aortic regurgitation. Mitral Valve * Mildly calcified mitral valve leaflets. * Mild-moderate mitral regurgitation. * No mitral stenosis. Tricuspid Valve * Normal tricuspid valve structure. * No tricuspid stenosis. * Mild tricuspid regurgitation. * Estimated RVSP is 41 mmHg. * Estimated RA pressure is 8 mmHg. * Mild pulmonary hypertension. Pulmonic Valve * Pulmonic valve is not well visualized. * No pulmonic stenosis. * Mild pulmonic regurgitation. Aorta * Normally sized aortic root. Pericardium * The pericardium appears normal. IVC * The IVC is not dilated. * < 50% respiratory change. Pleural Effusion * Moderate pleural effusion and ascites. Consult Discharge Plan - Plan Referrals: NONE,PCP [Primary Care Provider] - (2) Bilateral pneumonia Qualifiers: Pneumonia type: due to unspecified organism Lung location: lower lobe of lung Qualified Code(s): J18.1 - Lobar pneumonia, unspecified organism (5) Hypertension Qualifiers: Hypertension type: unspecified Qualified Code(s): I10 - Essential (primary) hypertension
--- NOTE | 2019-01-04 13:22 | Electrocardiograph Report ---
[address] [address] Test Date: 2019-01-03 Pat Name: Yajaira Díaz Department: 111 Room: 2NE35 Gender: F [employer]ident Responder: Adilia : [id number] Requested By: Radha Mcfarlane Order Number: [id number] Reading MD: Blake Espinosa Measurements Intervals [place] Rate: 109 P: 61 NH: 135 QRS: -7 QRSD: 100 T: 203 QT: 323 QTc: 387 Interpretive Statements SINUS TACHYCARDIA LEFT ATRIAL ENLARGEMENT Anteroseptal infarct age indeterminate Electronically Signed On 01-04-2019 13:20:29 EDT by Blake Espinosa
[2019-01-04 19:03] LABS: BUN/Creatinine Ratio 18 (6-26); Blood Urea Nitrogen 16 mg/dL (8-23); Calcium 8.1 mg/dL (8.6-10.3); Carbon Dioxide 29 mEq/L (23-29); Chloride 96 mEq/L (98-107); Glucose 140 mg/dL (70-105); Osmolality,Calculated 279 (280-300); Potassium 3.2 mEq/L (3.5-5.1); Sodium 133 mEq/L (136-145); eGFR For African Americans > 60 (> 60); eGFR For Non-African Americans 60 (> 60)
[2019-01-05] MEDS: *HR* Heparin 5,000 UNIT/ML VIAL IVP PRN (00:24)
[2019-01-05] MEDS: Heparin 25,000 UNIT/250 ML D5W 25,000 UNIT/250 ML IV.SOLN IVC SCH (05:39)
[2019-01-05] MEDS: Aspirin 81 MG TAB.CHEW PO SCH (09:09)
[2019-01-05] MEDS: Furosemide 40 MG TABLET PO SCH ×2 (09:10→16:07)
--- NOTE | 2019-01-05 10:14 | Cardiology Progress Note ---
Date of Encounter: 01/05/19 Time of Encounter: 10:00 Assessment and Plan (1) Acute decompensated heart failure Current Visit: Yes Status: Acute Per Cardiology: CXR: probable pulmonary venous hypertension with small left larger than right pleural effusions. Asymmetric airspace disease in the left lung base may represent atelectasis or concurrent pneumonia. CTA demonstrated additional findings of cardiomegaly, as well as calcific atherosclerosis aorta and coronary arteries. BNP was noted to be elevated at 821. Echocardiogram performed on 01/04/2019 demonstrated the following: LVEF 20%. Severe global and segmental left ventricular systolic dysfunction. Mild left ventricular diastolic dysfunction. Mildly dilated left atrium. Normal right ventricular structure with mild hypokinesis. Mild-moderate mitral regurgitation. Mild tricuspid regurgitation. Mild pulmonic regurgitation. Mild pulmonary hypertension. Moderate pleural effusion and ascites. Net I&O -768ml. on Lasix 40 mg by mouth twice a day. Has declined further ischemic evaluation. Medical management. DNR/Comfort Care. Reports some clinical improvement since admission. On strict I&O, daily weights. We will add 1.5 L fluid restriction. On beta radha and ADRIA inhibitor. Cardiology will sign off, re-consult PRN, f/u arranged. (2) NSTEMI (non-ST elevated myocardial infarction) Current Visit: Yes Status: Acute Per Cardiology: Mildly elevated troponin peak 0.07 in setting of CHF exacerbation. Flat and stiven namic. Patient reported pleuritic chest pain that coincides with onset of her respiratory symptoms. Suspect type II demand ischemia. However, ECG showed ST changes in lateral leads, with T-wave inversions in V4-V6 and changes in V3 that were not present on previous exams and EF 20%, but has declined further ischemic evaluation. Will DC IV hep gtt. On asa, plavix, statin, BB, ACEI. . Discussion w patient/family: The assessment and plan as outlined above was discussed with the patient and/or family members who expressed understanding and agreement. All questions were answered. Thank you for involving us in the care of your patient. Please call with any questions. Subjective Principal diagnosis: Acute CHF Interval history: Reports overall her shortness of breath has improved. Reports swelling to left lower extremity improved as well. Denies any chest pain or palpitations. Denies any new concerns or complaints overnight. Objective Vital Signs, Last 4 Hours Temp Pulse Resp BP Pulse Ox 01/05/19 08:16 98.7 F 94 12 133/74 93 General: Conversant, No Apparent Distress HEENT: Atraumatic, Normocephaly, Mucus Membranes Moist Neck: No JVD, Normal carotid pulses Cardiac: Reg Rate and Rhythm, Normal S1 and S2, No Murmur Lungs: Normal Breath Sounds, No Wheeze, Rales, Rhonchi, Other (Mild conversational dyspnea noted, diminished breath sounds bilateral bases) Neuro: Alert and responsive, No focal deficits noted Abdomen: Soft, Non-Tender Skin: No rashes noted on visualized skin Musculoskeletal: No Chest Wall Tenderness Extremities: No Clubbing, No Cyanosis, No Edema, Normal Pulses Results 01/04/19 04:58 01/04/19 18:10 Lab Results Laboratory Tests 01/03/19 01/03/19 01/03/19 10:55 10:55 16:35 Creatinine Est GFR (Non-Af Amer) Troponin I 0.07 H* 0.06 H* B-Natriuretic Peptide 821 H 01/03/19 01/04/19 01/04/19 22:52 04:58 04:58 Creatinine 0.65 Est GFR (Non-Af Amer) > 60 Troponin I 0.06 H* 0.05 H* B-Natriuretic Peptide ITS Impressions Chest X-Ray 01/03/19 10:35 IMPRESSION: Probable pulmonary venous hypertension with small left larger than right pleural effusions. Asymmetric airspace disease in the left lung base may represent atelectasis or concurrent pneumonia D/ / Mohinder Chu MD / Mohinder Chu MD Interpreting Provider: Mohinder Chu MD Chest CTA 01/03/19 12:09 IMPRESSION: 1. No pulmonary embolism. 2. Bibasilar consolidation and bilateral pleural effusion; pneumonia is a consideration. 3. Mild mediastinal and right hilar lymph node enlargement presumably reactive. Attention to this on follow-up IV contrast-enhanced CT chest imaging recommended in about 3 months. 4. Emphysema. 5. Cardiomegaly. 6. Calcific atherosclerosis aorta and coronary arteries. 7. Age-indeterminate approximately 60% anterior wedge compression fracture T12. The D/ / Acosta Adams / Acosta Adams Interpreting Provider: Acosta Adams Echocardiogram 01/03/19 14:39 Impressions: LVEF 20%. Severe global and segmental left ventricular systolic dysfunction. Mild left ventricular diastolic dysfunction. Mildly dilated left atrium. Normal right ventricular structure with mild hypokinesis. Mild-moderate mitral regurgitation. Mild tricuspid regurgitation. Mild pulmonic regurgitation. Mild pulmonary hypertension. Moderate pleural effusion and ascites. Left Ventricular Wall Motion: Rest Echo Findings The mid inferior, basal inferior, mid anterior, basal anterior, mid inferior septal, basal inferior septal, mid anterior lateral, basal anterior lateral, mid anterior septal, mid inferior lateral, basal anterior septal and basal inferior lateral lyon were hypokinetic. The apex, apical inferior, apical anterior, apical septal and apical lateral lyon were akinetic. Findings: Study Quality * Technically adequate exam. ECG Findings * Normal sinus rhythm. Left Ventricle * LVEF 20%. * Normal LV chamber size, wall thickness. * Severe global and segmental left ventricular systolic dysfunction. * Mild left ventricular diastolic dysfunction. * There is no LV thrombus. * Definity echo contrast was used. Right Ventricle * Normal right ventricular structure with mild hypokinesis. Left Atrium * Mildly dilated left atrium. Right Atrium * Normal right atrial size. Interatrial Septum * Interatrial septum not well evaluated. Aortic Valve * Moderately calcified aortic valve leaflets. * No aortic stenosis. * No aortic regurgitation. Mitral Valve * Mildly calcified mitral valve leaflets. * Mild-moderate mitral regurgitation. * No mitral stenosis. Tricuspid Valve * Normal tricuspid valve structure. * No tricuspid stenosis. * Mild tricuspid regurgitation. * Estimated RVSP is 41 mmHg. * Estimated RA pressure is 8 mmHg. * Mild pulmonary hypertension. Pulmonic Valve * Pulmonic valve is not well visualized. * No pulmonic stenosis. * Mild pulmonic regurgitation. Aorta * Normally sized aortic root. Pericardium * The pericardium appears normal. IVC * The IVC is not dilated. * < 50% respiratory change. Pleural Effusion * Moderate pleural effusion and ascites. Active Medications Aspirin (Aspirin) 81 mg PO DAILY ROBYN Stop: 07/06/19 09:01 Last Admin: 01/05/19 09:09 Dose: 81 mg Documented by: Atorvastatin Calcium (Lipitor) 40 mg PO HS ROBYN Stop: 07/05/19 21:01 Last Admin: 01/04/19 21:00 Dose: 40 mg Documented by: Clopidogrel Bisulfate (Plavix) 75 mg PO DAILY ROBYN Stop: 07/06/19 11:16 Last Admin: 01/05/19 09:10 Dose: 75 mg Documented by: Furosemide (Lasix) 40 mg PO BIDDIURETIC ROBYN Stop: 07/06/19 09:31 Last Admin: 01/05/19 09:10 Dose: 40 mg Documented by: Heparin Sodium (Porcine) (Heparin) 2,700 unit 60 unit/kg (2700 unit) IVP Q6HR PRN PRN Reason: SEE COMMENTS Stop: 07/05/19 13:35 Heparin Sodium (Porcine) (Heparin) 1,300 unit 30 unit/kg (1300 unit) IVP Q6H PRN PRN Reason: SEE COMMENTS Stop: 07/05/19 13:35 Last Admin: 01/05/19 00:24 Dose: 1,300 unit Documented by: Heparin Sodium/Dextrose (Heparin 25,000 Unit/250 Ml D5w) 25,000 unit in 250 mls @ 5.302 mls/hr IVC .Q24H ROBYN; Protocol Stop: 07/05/19 13:46 Last Titration: 01/05/19 07:07 Dose: 18 unit/kg/hr, 8 mls/hr Documented by: Lisinopril (Zestril) 2.5 mg PO DAILY ROBYN; Protocol Stop: 07/06/19 09:01 Last Admin: 01/05/19 09:10 Dose: 2.5 mg Documented by: Melatonin (Melatonin) 1.5 mg PO HS PRN PRN Reason: Insomnia Stop: 07/06/19 01:26 Last Admin: 01/04/19 03:54 Dose: 1.5 mg Documented by: Metoprolol Tartrate (Lopressor) 12.5 mg PO BID ROBYN Stop: 07/05/19 21:01 Last Admin: 01/05/19 09:10 Dose: 12.5 mg Documented by: Nitroglycerin (Nitroglycerin) 0.4 mg SL Q5MPRN PRN PRN Reason: Chest Pain Stop: 07/05/19 16:54 Ondansetron HCl (Zofran) 4 mg IVP Q8HR PRN; Protocol PRN Reason: Nausea And Vomiting Stop: 07/06/19 06:56 Last Admin: 01/04/19 07:39 Dose: 4 mg Documented by: Simethicone (Gas-X) 80 mg PO TID PRN PRN Reason: Dyspepsia Stop: 07/06/19 01:26 Last Admin: 01/04/19 10:12 Dose: 80 mg Documented by: - Imaging and Cardiology Echo: report reviewed Consult Discharge Plan - Plan Referrals: Bryan Dang DO [Partnered Physician] - (patient has not been to Dr. Duff office since 2012 they will call the patient directly and talk with her about a hospital follow up .....per Nadine)
--- NOTE | 2019-01-05 12:33 | Internal Med Progress Note ---
Hospitalist Progress Note - Encounter Date of Encounter: 01/05/19 Time of Encounter: 12:17 - Subjective Interval History: Pt state she lacks energy. She denies chest pain and SOB improving. She denies fever, chills, N/V or diarrhea. She denies constipation. - Exam Vitals: Temp Pulse Resp BP Pulse Ox 98.7 F 94 12 133/74 93 01/05/19 08:16 01/05/19 08:16 01/05/19 08:16 01/05/19 08:16 01/05/19 08:16 Exam: General appearance: Present: A&O X 3, no acute distress Exam: Head exam: Present: atraumatic, normocephalic Eye exam: Present: PERRL, conjuntiva pink, sclera anicteric Pupils: Present: PERRL Neck exam general surgery: Present: supple, trachea midline. Absent: lymphadenopathy Respiratory exam: Absent: accessory muscle use, CTAB, rales, rhonchi, wheezes Additional comments: Bibasilar crackles improving Cardiovascular exam: Present: RRR, +S1, +S2. Absent: diastolic murmur, gallop, rubs, systolic murmur GI/Abdominal exam: Present: normal bowel sounds, soft, no peritoneal signs. Absent: distended, tenderness Extremities exam: Present: warm, radial pulses palpable and symmetrical. Absent: pedal edema, calf tenderness, cyanotic Additional comments: LE extremity dry and skin sloughing off. Neurological exam: Present: CN II-XII intact, oriented X3, no focal deficits. Absent: pronater drift, facial droop, speech deficit Skin exam: Present: dry, intact - Assessment and Plan (1) NSTEMI (non-ST elevated myocardial infarction) Current Visit: Yes Status: Acute Assessment and Plan: Pt is on Heparin. Troponin 0.06--> 0.06-->0.05. ASA daily and Nitro SL PRN. Cardiology and on board and started pt on Atorvastatin, plavix, Metoprolol, and Lisinopril. Pt states she does not want a heart cath and daughter affirms that she would refuse it. Echo cardiogram is abnormal EV/EV echocardiogram w enhance Impressions: LVEF 20%. Severe global and segmental left ventricular systolic dysfunction. Mild left ventricular diastolic dysfunction. Mildly dilated left atrium. Normal right ventricular structure with mild hypokinesis. Mild-moderate mitral regurgitation. Mild tricuspid regurgitation. Mild pulmonic regurgitation. Mild pulmonary hypertension. Moderate pleural effusion and ascites. (2) Bilateral pneumonia Current Visit: Yes Status: Suspected Assessment and Plan: Possible PNA on imaging but more likely pulmonary edema/CHF. Was on Levaquin 750 mg IV daily. Sputum culture ordered but patient is not able to give a sample. Will repeat chest x ray (3) Acute decompensated heart failure Current Visit: Yes Status: Acute Assessment and Plan: Acute decompensated systolic CHF Was on Lasix 40 mg IV BID. No on PO Lasix Will continue to monitor I/O's, continue on fluid and salt restriction, and check weights daily. Echocardiogram abnormal EV/EV echocardiogram w enhance Impressions: LVEF 20%. Severe global and segmental left ventricular systolic dysfunction. Mild left ventricular diastolic dysfunction. Mildly dilated left atrium. Normal right ventricular structure with mild hypokinesis. Mild-moderate mitral regurgitation. Mild tricuspid regurgitation. Mild pulmonic regurgitation. Mild pulmonary hypertension. Moderate pleural effusion and ascites. (4) Elevated troponin Current Visit: Yes Status: Acute Assessment and Plan: Troponin trending down. Possible NSTEMI but pt refusing cath (5) Hypertension Current Visit: Yes Status: Acute Assessment and Plan: Pt states she stopped taking her Metoprolol since October because she did not trust her physician. (6) Impaired decision making Current Visit: Yes Status: Suspected Assessment and Plan: Pt Alert and oriented x 3. NAD. Pt appears to be appropriate with all her responses and is coherent. She states multiple times she does not want aggressive measure. Daughter states she has dementia though not medically determined by a physician. PT states her son who is the only other living child has renal disease and DM and very ill. Daughter confirmed this. Psych consulted to see and help assess medical decision making capacity. Seen by psych and she is noted to be able to make her own decisions. (7) Risk for falls Current Visit: Yes Status: Acute Assessment and Plan: Continue on fall precautions. Consulting PT/OT to see DVT Prophylaxis: Heparin - Summary of Assessment and Plan Summary of Assessment and Plan: History of present illness: Dr. Lazo Ms. Díaz is a 83 year old female who has past medical hx of HTN, ? anxiety and depression, falls, ?syncope, who presents with progressive shortness of breath and chest pain. Pt denies prior history of MN or CAD that she is aware of. Patient states that the chest pain is pleuritic in nature and is non-radia ting. She denies N/V, abdominal pain or diarrhea. She admits to being a current smoker and has been since 14years of age. She denies hx of COPD she is aware of and she does not use oxygen at home. - Time Spent with Patient Total time spent is greater than 50% in coordination of care (as documented) at patient's floor/unit and/or counseling patient: less than 15 minutes Plan of Care Discussed with: patient Internal Medicine: Result - Labs CBC & Chem 7: 01/04/19 04:58 01/04/19 18:10 Labs: BMP 01/04/19 18:10 Sodium 133 L Potassium 3.2 L Chloride 96 L Carbon Dioxide 29 BUN 16 Creatinine 0.90 Glucose 140 H Calcium 8.1 L - ABG Interpretation ABG results: PT/INR, D-dimer PT 13.5 Seconds (9.4-12.1) H 01/04/19 04:58 6672 ng/mLFEU (0-500) H 01/03/19 10:55 Consult Discharge Plan - Plan Referrals: Bryan Dang DO [Partnered Physician] - (patient has not been to Dr. Duff office since 2012 they will call the patient directly and talk with her about a hospital follow up .....per Nadine) (2) Bilateral pneumonia Qualifiers: Pneumonia type: due to unspecified organism Lung location: lower lobe of lung Qualified Code(s): J18.1 - Lobar pneumonia, unspecified organism (5) Hypertension Qualifiers: Hypertension type: unspecified Qualified Code(s): I10 - Essential (primary) hypertension
[2019-01-05] MEDS: Metoprolol XL (24 HR) Succ 25 MG TAB.ER.24H PO SCH (13:34)
[2019-01-06] MEDS: Melatonin 3 MG TABLET PO PRN ×2 (03:33→21:18)
[2019-01-06] MEDS: Metoprolol XL (24 HR) Succ 25 MG TAB.ER.24H PO SCH (08:48)
[2019-01-06] MEDS: Furosemide 40 MG TABLET PO SCH ×2 (08:48→15:39)
[2019-01-06] MEDS: Aspirin 81 MG TAB.CHEW PO SCH (08:48)
--- NOTE | 2019-01-06 12:59 | Discharge Summary ---
- NOTES TO OUTPATIENT PROVIDER Notes to Outpatient Provider: PCP in 5 to 7 days Orders not resulted at time of discharge: Pending orders 01/03/19 10:34 ECG 12 lead ECG [ECG] Stat 01/03/19 16:57 Sputum Culture [Culture,Sputum with Gram Stain] [RM] Routine 01/04/19 06:00 EKG [ECG 12 lead ECG] [ECG] AM 0600 Date of Encounter: 01/06/19 Time of Encounter: 12:57 - Discharge Diagnosis (1) NSTEMI (non-ST elevated myocardial infarction) Priority: Primary Status: Acute Assessment and Plan: Pt is on Heparin. Troponin 0.06--> 0.06-->0.05. ASA daily and Nitro SL PRN. Cardiology and on board and started pt on Atorvastatin, Plavix, Metoprolol, and Lisinopril. Pt states she does not want a heart cath and daughter affirms that she would refuse it. Echo cardiogram is abnormal EV/EV echocardiogram w enhance Impressions: LVEF 20%. Severe global and segmental left ventricular systolic dysfunction. Mild left ventricular diastolic dysfunction. Mildly dilated left atrium. Normal right ventricular structure with mild hypokinesis. Mild-moderate mitral regurgitation. Mild tricuspid regurgitation. Mild pulmonic regurgitation. Mild pulmonary hypertension. Moderate pleural effusion and ascites. (2) Bilateral pneumonia Status: Suspected Assessment and Plan: Possible PNA on imaging but more likely pulmonary edema/CHF. Was on Levaquin 750 mg IV daily. Sputum culture ordered but patient is not able to give a sample. Repeat chest x ray showed no significant Qualifiers: Pneumonia type: due to unspecified organism Lung location: lower lobe of lung Qualified Code(s): J18.1 - Lobar pneumonia, unspecified organism (3) Acute decompensated heart failure Status: Acute (4) Elevated troponin Status: Acute (5) Hypertension Status: Acute Qualifiers: Hypertension type: unspecified Qualified Code(s): I10 - Essential (primary) hypertension (6) Impaired decision making Status: Suspected (7) Risk for falls Status: Acute Hospital course: Ms. Díaz is a 83 year old female - Time Spent with Patient Total time spent providing and/or coordinating discharge services: - Discharge Medications Prescriptions: No Action Metoprolol Succinate [Toprol Xl] 50 mg PO DAILY Losartan Potassium [Cozaar] 50 mg PO DAILY Home Medications: Losartan Potassium [Cozaar] 50 mg PO DAILY 01/03/19 [History] Metoprolol Succinate [Toprol Xl] 50 mg PO DAILY 01/03/19 [History] Allergies/Adverse Reactions: Allergy/AdvReac Type Severity Reaction Status Date / Time Penicillins [PCN] Allergy Hives Verified 01/03/19 10:44 Date of admission: 01/03/19 15:08 Primary care physician: PCP NONE Consults: 01/03/19 13:32 Consult to Cardiology [CONS] Stat Comment: Consulting Provider: Cardiology Allyssa Reason for Consult: NSTEMI Time Notified: 13:33 Call Completed: Yes 01/03/19 16:21 Consult to Psychology [CONS] Routine Consulting Provider: Sameera Molina Reason for Consult: medical decision making capacity Call Completed: Yes 01/03/19 16:53 Consult to Cardiac Rehabilitation-Phase1 [CONS] Routine Comment: Reason for Consult: heart failure Call Completed: Yes Consult to Nurse Navigator [CONS] Routine Comment: 01/04/19 09:25 Consult to Psychiatry [CONS] Routine Consulting Provider: Psychiatry Allyssa Reason consult: Capacity assessment Other reason and/or additional details: Medical decision making capacity 01/05/19 09:21 Consult to Occupational Therapy [CONS] Routine Comment: Evaluate, develop and implement POC Reason for Consult: Evaluate and develop plan for discharge Does patient have active BEDREST order?: No Is patient medically & hemodynamically stable?: Yes Consult to Physical Therapy [CONS] Routine Comment: Evaluate, develop and implement POC Reason for Consult: Evaluate and plan for discharge Does patient have active BEDREST order?: No Is patient medically & hemodynamically stable?: Yes Discharging clinician: Lurdes Lazo Anticipated date of discharge: 01/06/19 - Constitutional Vitals: Temp Pulse Resp BP Pulse Ox 97.8 F 74 12 114/78 98 01/06/19 11:04 01/06/19 11:04 01/06/19 11:04 01/06/19 11:04 01/06/19 06:43 General appearance: Present: A&O X 3, no acute distress - Discharge Instructions Follow Up With: Bryan Dang DO [Partnered Physician] - (patient has not been to Dr. Duff office since 2012 they will call the patient directly and talk with her about a hospital follow up .....per Nadine) Forms: ED Satisfaction Letter
[2019-01-06] MEDS ORDERED: Albuterol 2.5 MG/3 ML NEBULIZER IH PRN (14:24)
--- NOTE | 2019-01-06 14:32 | Internal Med Progress Note ---
Hospitalist Progress Note - Encounter Date of Encounter: 01/06/19 Time of Encounter: 14:27 - Subjective Interval History: Pt reporting feeling SOB this am. She denies having fever, or chills. She denies having chest pain or SOB. She does report having constipation - Exam Vitals: Temp Pulse Resp BP Pulse Ox 97.8 F 74 12 114/78 98 01/06/19 11:04 01/06/19 11:04 01/06/19 11:04 01/06/19 11:04 01/06/19 06:43 Exam: General appearance: Present: A&O X 3, no acute distress Exam: Head exam: Present: atraumatic, normocephalic Eye exam: Present: PERRL, conjuntiva pink, sclera anicteric Pupils: Present: PERRL Neck exam general surgery: Present: supple, trachea midline. Absent: lymphadenopathy Respiratory exam: Absent: accessory muscle use, CTAB, rales, rhonchi, wheezes Additional comments: Bibasilar crackles Cardiovascular exam: Present: RRR, +S1, +S2. Absent: diastolic murmur, gallop, rubs, systolic murmur GI/Abdominal exam: Present: normal bowel sounds, soft, no peritoneal signs. Absent: distended, tenderness Extremities exam: Present: warm, radial pulses palpable and symmetrical. Absent: pedal edema, calf tenderness, cyanotic Additional comments: LE extremity dry and skin sloughing off. Neurological exam: Present: CN II-XII intact, oriented X3, no focal deficits. Absent: pronater drift, facial droop, speech deficit Skin exam: Present: dry, intact - Assessment and Plan (1) NSTEMI (non-ST elevated myocardial infarction) Current Visit: Yes Status: Acute Assessment and Plan: Pt was on Heparin but discontinued after 48 hours. Troponin 0.06--> 0.06-->0.05. ASA daily and Nitro SL PRN. Cardiology and on board and started pt on Atorvastatin, Plavix, Metoprolol, and Lisinopril. Pt states she does not want a heart cath and daughter affirms that she would refuse it. Echo cardiogram is abnormal EV/EV echocardiogram w enhance Impressions: LVEF 20%. Severe global and segmental left ventricular systolic dysfunction. Mild left ventricular diastolic dysfunction. Mildly dilated left atrium. Normal right ventricular structure with mild hypokinesis. Mild-moderate mitral regurgitation. Mild tricuspid regurgitation. Mild pulmonic regurgitation. Mild pulmonary hypertension. Moderate pleural effusion and ascites. (2) Bilateral pneumonia Current Visit: Yes Status: Suspected Assessment and Plan: Possible PNA on imaging but more likely pulmonary edema/CHF. On Levaquin 750 mg IV daily. Sputum culture ordered but patient is not able to give a sample. Repeat chest x ray showed no significant change so will keep pt on IV antibiotic for now. (3) Acute decompensated heart failure Current Visit: Yes Status: Acute Assessment and Plan: Acute decompensated systolic CHF Was on Lasix 40 mg IV BID. Now on PO Lasix per cardiology orders. Will continue to monitor I/O's, continue on fluid and salt restriction, and check weights daily. Echocardiogram abnormal EV/EV echocardiogram w enhance Impressions: LVEF 20%. Severe global and segmental left ventricular systolic dysfunction. Mild left ventricular diastolic dysfunction. Mildly dilated left atrium. Normal right ventricular structure with mild hypokinesis. Mild-moderate mitral regurgitation. Mild tricuspid regurgitation. Mild pulmonic regurgitation. Mild pulmonary hypertension. Moderate pleural effusion and ascites. (4) COPD exacerbation Current Visit: Yes Status: Acute Assessment and Plan: Pt states she does not have COPD however, CT chest showing emphysema. Avid smoker since [address] on nebs scheduled, and PRN and steroids and see if this improves her symptoms. May benefit form home oxygen evaluation at discharge. (5) Pleural effusion Current Visit: Yes Status: Acute Assessment and Plan: If does not respond to diuretic. May need to consider thoracenthesis. (6) Elevated troponin Current Visit: Yes Status: Acute Assessment and Plan: Troponin trending down. Possible NSTEMI but pt refusing cath (7) Hypertension Current Visit: Yes Status: Acute Assessment and Plan: Pt states she stopped taking her Metoprolol since October because she did not trust her physician. BP meds resumed by cardiology (8) Impaired decision making Current Visit: Yes Status: Suspected Assessment and Plan: Pt Alert and oriented x 3. NAD. Pt appears to be appropriate with all her responses and is coherent. She states multiple times she does not want aggressive measure. Daughter states she has dementia though not medically determined by a physician. PT states her son who is the only other living child has renal disease and DM and very ill. Daughter confirmed this. Psych consulted to see and help assess medical decision making capacity. Seen by psych and she is noted to be able to make her own decisions. (9) Risk for falls Current Visit: Yes Status: Acute Assessment and Plan: Continue on fall precautions. PT/OT consulting. Pt refusing SNF or home health services. DVT Prophylaxis: Heparin - Summary of Assessment and Plan Summary of Assessment and Plan: History of present illness: Dr. Lazo Ms. Díaz is a 83 year old female who has past medical hx of HTN, ? anxiety and depression, falls, ?syncope, who presents with progressive shortness of breath and chest pain. Pt denies prior history of GA or CAD that she is aware of. Patient states that the chest pain is pleuritic in nature and is non- radiating. She denies N/V, abdominal pain or diarrhea. She admits to being a current smoker and has been since 14 years of age. She denies hx of COPD she is aware of and she does not use oxygen at home. - Time Spent with Patient Total time spent is greater than 50% in coordination of care (as documented) at patient's floor/unit and/or counseling patient: less than 15 minutes Internal Medicine: Result - Labs CBC & Chem 7: 01/04/19 04:58 01/04/19 18:10 - ABG Interpretation ABG results: PT/INR, D-dimer PT 13.5 Seconds (9.4-12.1) H 01/04/19 04:58 6672 ng/mLFEU (0-500) H 01/03/19 10:55 - Impressions Impressions Chest X-Ray 01/05/19 12:36 IMPRESSION: No significant jacket changer the past 2 days. Left greater than right pleural effusions with adjacent bibasilar airspace disease. D/ / Sadiq Henry MD / Sadiq Henry MD Interpreting Provider: Sadiq Henry MD Consult Discharge Plan - Plan Referrals: Bryan Dang DO [Partnered Physician] - (patient has not been to Dr. Duff office since 2012 they will call the patient directly and talk with her about a hospital follow up .....per Nadine) (2) Bilateral pneumonia Qualifiers: Pneumonia type: due to unspecified organism Lung location: lower lobe of lung Qualified Code(s): J18.1 - Lobar pneumonia, unspecified organism (7) Hypertension Qualifiers: Hypertension type: unspecified Qualified Code(s): I10 - Essential (primary) hypertension
[2019-01-06] MEDS ORDERED: levoFLOXacin 750 MG/150 ML 750 MG/150 ML BAG IVPB SCH (15:00)
[2019-01-06] MEDS: Ipratropium/Albuterol Neb 3 ML IH SCH ×2 (15:12→22:31)
[2019-01-06] MEDS: Azithromycin 250 MG TABLET PO SCH (15:39)
[2019-01-06] MEDS: cefTRIAXone 1,000 MG in Water for inj. (sterile) 10 ML IVP SCH (15:39)
[2019-01-06] MEDS: MethylPREDNISolone 40 MG/ML VIAL IVP SCH ×2 (16:20→23:24)
[2019-01-06] MEDS: Sennosides 8.6 MG TABLET PO SCH (21:18)
[2019-01-07] MEDS ORDERED: Acetaminophen 325 MG TABLET PO PRN (00:13)
[2019-01-07] MEDS: Ipratropium/Albuterol Neb 3 ML IH SCH ×4 (03:50→23:11)
[2019-01-07] MEDS: MethylPREDNISolone 40 MG/ML VIAL IVP SCH ×2 (06:17→12:46)
[2019-01-07] MEDS: *HR* Heparin 5,000 UNIT/ML VIAL SQ SCH ×2 (06:17→17:48)
--- NOTE | 2019-01-07 07:59 | Internal Med Progress Note ---
Hospitalist Progress Note - Encounter Date of Encounter: 01/07/19 Time of Encounter: 15:00 - Subjective Interval History: No acute events overnight - Exam Vitals: Temp Pulse Resp BP Pulse Ox 97.6 F 88 16 129/79 96 01/07/19 07:49 01/07/19 07:49 01/07/19 07:49 01/07/19 07:49 01/07/19 07:49 Exam: General appearance: Present: A&O X 3, no acute distress Exam: Head exam: Present: atraumatic, normocephalic Eye exam: Present: PERRL, conjuntiva pink, sclera anicteric Pupils: Present: PERRL Neck exam general surgery: Present: supple, trachea midline. Absent: lympha denopathy Respiratory exam: Absent: accessory muscle use, CTAB, rales, rhonchi, wheezes Additional comments: Bibasilar crackles Cardiovascular exam: Present: RRR, +S1, +S2. Absent: diastolic murmur, gallop, rubs, systolic murmur GI/Abdominal exam: Present: normal bowel sounds, soft, no peritoneal signs. Absent: distended, tenderness Extremities exam: Present: warm, radial pulses palpable and symmetrical. Absent: pedal edema, calf tenderness, cyanotic Additional comments: LE extremity dry and skin sloughing off. Neurological exam: Present: CN II-XII intact, oriented X3, no focal deficits. Absent: pronater drift, facial droop, speech deficit Skin exam: Present: dry, intact - Assessment and Plan (1) NSTEMI (non-ST elevated myocardial infarction) Current Visit: Yes Status: Acute Assessment and Plan: Came in with chest pain and elevated troponins and was initiallly on a heparin drip for NSTEMI Declined cardiac catheterization. Will continue medical management (2) Bilateral pneumonia Current Visit: Yes Status: Acute Assessment and Plan: Improved on ceftriaxone and azithromycin (3) Acute decompensated heart failure Current Visit: Yes Status: Acute Assessment and Plan: Acute decompensated systolic CHF Was on Lasix 40 mg IV BID. Now on PO Lasix per cardiology orders. Will continue to monitor I/O's, continue on fluid and salt restriction, and check weights daily. Improved on lasix. (4) Elevated troponin Current Visit: Yes Status: Acute Assessment and Plan: Troponin trending down. Possible NSTEMI but pt refusing cath (5) Hypertension Current Visit: Yes Status: Acute Assessment and Plan: Pt states she stopped taking her Metoprolol since October because she did not trust her physician. BP meds resumed by cardiology (6) Risk for falls Current Visit: Yes Status: Acute Assessment and Plan: Continue on fall precautions. PT/OT consulting. Pt refusing SNF or home health services. (7) Impaired decision making Current Visit: Yes Status: Acute Assessment and Plan: Pt Alert and oriented x 3. NAD. Pt appears to be appropriate with all her responses and is coherent. She states multiple times she does not want aggressive measure. Daughter states she has dementia though not medically determined by a physician. PT states her son who is the only other living child has renal disease and DM and very ill. Daughter confirmed this. Psych consulted to see and help assess medical decision making capacity. Seen by psych and she is noted to be able to make her own decisions. (8) COPD exacerbation Current Visit: Yes Status: Acute Assessment and Plan: Pt states she does not have COPD however, CT chest showing emphysema. Improved. WIll taper steroids to po (9) Pleural effusion Current Visit: Yes Status: Acute Assessment and Plan: Patient has bilateral pleural effusions likely secondary to systolic CHF Ultrasound did not show enough fluid for thoracentesis DVT Prophylaxis: Heparin sc - Time Spent with Patient Total time spent is greater than 50% in coordination of care (as documented) at patient's floor/unit and/or counseling patient: Internal Medicine: Result - Labs CBC & Chem 7: 01/07/19 08:09 01/07/19 08:09 - ABG Interpretation ABG results: PT/INR, D-dimer PT 13.5 Seconds (9.4-12.1) H 01/04/19 04:58 6672 ng/mLFEU (0-500) H 01/03/19 10:55 Consult Discharge Plan - Plan Referrals: Bryan Dang DO [Partnered Physician] - (patient has not been to Dr. Duff office since 2012 they will call the patient directly and talk with her about a hospital follow up .....per Nadine) (2) Bilateral pneumonia Qualifiers: Pneumonia type: due to unspecified organism Lung location: lower lobe of lung Qualified Code(s): J18.1 - Lobar pneumonia, unspecified organism (5) Hypertension Qualifiers: Hypertension type: unspecified Qualified Code(s): I10 - Essential (primary) hypertension
[2019-01-07 08:27] LABS: Hematocrit 31.8 % (35.3-44.9); Hemoglobin 10.7 g/dL (11.5-15.4); Immature Granulocytes % 0.6 % (0-4); Lymphocytes # 0.6 K/mcL (0.6-4.6); Lymphocytes % 18.8 %; Mean Corpuscular HGB Conc 33.6 g/dL (31.6-35.5); Mean Corpuscular Hemoglobin 31.4 pg (28.0-33.3); Mean Corpuscular Volume 93.3 fL (83.0-100.0); Mean Platelet Volume 10.6 fL (9.4-12.4); Monocytes # 0.1 K/mcL (0.0-1.3); Monocytes % 2.9 %; Neutrophils # 2.6 K/mcL (1.6-8.9); Platelet Count 162 K/mcL (140-400); Red Blood Count 3.41 M/mcL (3.82-4.97); Red Cell Distribution Width 12.5 % (11.5-14.5); Segmented Neutrophils % 77.7 %; White Blood Count 3.4 K/mcL (4.3-11.1)
[2019-01-07 08:36] LABS: INR 1.1; Prothrombin Time 12.6 Seconds (9.4-12.1)
[2019-01-07 08:48] LABS: BUN/Creatinine Ratio 29 (6-26); Blood Urea Nitrogen 20 mg/dL (8-23); Calcium 8.8 mg/dL (8.6-10.3); Carbon Dioxide 31 mEq/L (23-29); Chloride 92 mEq/L (98-107); Glucose 160 mg/dL (70-105); Osmolality,Calculated 284 (280-300); Potassium 2.9 mEq/L (3.5-5.1); Sodium 134 mEq/L (136-145); eGFR For African Americans > 60 (> 60); eGFR For Non-African Americans > 60 (> 60)
[2019-01-07] MEDS: Furosemide 40 MG TABLET PO SCH (10:04)
[2019-01-07] MEDS: Sennosides 8.6 MG TABLET PO SCH ×2 (10:04→20:22)
[2019-01-07] MEDS: Metoprolol XL (24 HR) Succ 25 MG TAB.ER.24H PO SCH (10:04)
[2019-01-07] MEDS: Aspirin 81 MG TAB.CHEW PO SCH (10:04)
[2019-01-07] MEDS: cefTRIAXone 1,000 MG in Water for inj. (sterile) 10 ML IVP SCH (10:10)
[2019-01-07] MEDS: Nicotine 21 MG PATCH.TD24 TD SCH (10:11)
[2019-01-07] MEDS: Azithromycin 250 MG TABLET PO SCH (10:14)
[2019-01-07] MEDS: Potassium Chloride Elixir 20 MEQ/15 ML UDC PO SCH ×2 (12:46→16:33)
[2019-01-07] MEDS ORDERED: Furosemide 20 MG/2 ML VIAL IVP ONE (15:18)
[2019-01-07] MEDS ORDERED: Potassium Chloride Elixir 20 MEQ/15 ML UDC PO ONE (20:00)
[2019-01-07] MEDS: Furosemide 20 MG/2 ML VIAL IVP SCH (20:25)
[2019-01-07] MEDS: Melatonin 3 MG TABLET PO PRN (20:29)
[2019-01-08] MEDS: Ipratropium/Albuterol Neb 3 ML IH SCH ×2 (04:03→10:43)
[2019-01-08 05:14] LABS: Hematocrit 30.4 % (35.3-44.9); Immature Granulocytes % 0.4 % (0-4); Lymphocytes # 1.3 K/mcL (0.6-4.6); Mean Corpuscular HGB Conc 32.9 g/dL (31.6-35.5); Mean Corpuscular Hemoglobin 31.5 pg (28.0-33.3); Mean Corpuscular Volume 95.9 fL (83.0-100.0); Monocytes # 0.8 K/mcL (0.0-1.3); Monocytes % 7.5 %; Neutrophils # 8.1 K/mcL (1.6-8.9); Platelet Count 167 K/mcL (140-400); Red Blood Count 3.17 M/mcL (3.82-4.97); Red Cell Distribution Width 12.8 % (11.5-14.5); Segmented Neutrophils % 79.1 %; White Blood Count 10.2 K/mcL (4.3-11.1)
[2019-01-08 05:31] LABS: Calcium 8.7 mg/dL (8.6-10.3); Potassium 3.6 mEq/L (3.5-5.1)
[2019-01-08] MEDS: *HR* Heparin 5,000 UNIT/ML VIAL SQ SCH (06:09)
[2019-01-08 06:41] VITALS: BP 115/70
[2019-01-08] MEDS ORDERED: predniSONE 20 MG TABLET PO SCH (09:00)
[2019-01-08] MEDS: cefTRIAXone 1,000 MG in Water for inj. (sterile) 10 ML IVP SCH (10:21)
[2019-01-08] MEDS: Nicotine 21 MG PATCH.TD24 TD SCH (10:22)
[2019-01-08] MEDS: Furosemide 20 MG/2 ML VIAL IVP SCH (10:22)
[2019-01-08] MEDS: Metoprolol XL (24 HR) Succ 25 MG TAB.ER.24H PO SCH (10:22)
[2019-01-08] MEDS: Sennosides 8.6 MG TABLET PO SCH (10:22)
[2019-01-08] MEDS: Azithromycin 250 MG TABLET PO SCH (10:22)
[2019-01-08] MEDS: Aspirin 81 MG TAB.CHEW PO SCH (10:22)
--- NOTE | 2019-01-08 11:05 | Discharge Summary ---
Date of Encounter: 01/08/19 Time of Encounter: 09:00 - Discharge Diagnosis (1) NSTEMI (non-ST elevated myocardial infarction) Priority: Primary Status: Acute Assessment and Plan: 83 year old female who has past medical hx of HTN, ? anxiety and depression, falls, ?syncope, who presents with progressive shortness of breath and chest pain. Pt denies prior history of ID or CAD that she is aware of. Patient states that the chest pain is pleuritic in nature and is non-radiating.She denies N/V, abdominal pain or diarrhea. She admits to being a current smoker and has been since 14years of age. She denies hx of COPD she is aware of and she does not use oxygen at home. She came in with chest pain and elevated troponins and was assessed with NSTEMI and started on a heparin drip. She declined cardiac catheterization and was med ically managed with aspirin plavix and lipitor. She also had an acute worsening of chronic systolic cHF for which she improved on lasix and will be discharged on lasix. She had pneumonia and COPD exacerbation as well and completed a course of antibiotics and steroids. She was offered the option to go to rehab or get a home [facility] aide as she was insistent on going home on discharge but declined joanna th options. 35 minutes was spent discharging this patient (2) Bilateral pneumonia Priority: Primary Status: Acute Qualifiers: Pneumonia type: due to unspecified organism Lung location: lower lobe of lung Qualified Code(s): J18.1 - Lobar pneumonia, unspecified organism (3) Acute decompensated heart failure Priority: Primary Status: Acute (4) Elevated troponin Priority: Primary Status: Acute (5) Hypertension Priority: Primary Status: Acute Qualifiers: Hypertension type: unspecified Qualified Code(s): I10 - Essential (primary) hypertension (6) Risk for falls Priority: Primary Status: Acute (7) Impaired decision making Priority: Primary Status: Acute (8) COPD exacerbation Priority: Primary Status: Acute (9) Pleural effusion Priority: Primary Status: Acute Hospital course: Ms. Díaz is a 83 year old female - Time Spent with Patient Total time spent providing and/or coordinating discharge services: - Discharge Medications Prescriptions: New Aspirin 81 mg PO DAILY #30 tab.chew Atorvastatin [Lipitor] 40 mg PO HS #30 tablet Nicotine Patch [Nicoderm] 21 mg TD DAILY #30 patch.td24 Clopidogrel [Plavix] 75 mg PO DAILY #30 tablet predniSONE [PredniSONE] 40 mg PO DAILY 3 Days #6 tablet Furosemide [Lasix] 40 mg PO BID #60 tab Potassium Chloride 10 meq PO DAILY #30 tab.er.prt Continued Metoprolol Succinate [Toprol Xl] 50 mg PO DAILY Losartan Potassium [Cozaar] 50 mg PO DAILY Home Medications: Losartan Potassium [Cozaar] 50 mg PO DAILY 01/03/19 [History] Metoprolol Succinate [Toprol Xl] 50 mg PO DAILY 01/03/19 [History] Aspirin 81 mg PO DAILY #30 tab.chew 01/08/19 [Rx] Atorvastatin [Lipitor] 40 mg PO HS #30 tablet 01/08/19 [Rx] Clopidogrel [Plavix] 75 mg PO DAILY #30 tablet 01/08/19 [Rx] Furosemide [Lasix] 40 mg PO BID #60 tab 01/08/19 [Rx] Nicotine Patch [Nicoderm] 21 mg TD DAILY #30 patch.td24 01/08/19 [Rx] Potassium Chloride 10 meq PO DAILY #30 tab.er.prt 01/08/19 [Rx] predniSONE [PredniSONE] 40 mg PO DAILY 3 Days #6 tablet 01/08/19 [Rx] Allergies/Adverse Reactions: Allergy/AdvReac Type Severity Reaction Status Date / Time Penicillins [PCN] Allergy Hives Verified 01/03/19 10:44 Date of admission: 01/03/19 15:08 Primary care physician: PCP NONE Consults: 01/03/19 13:32 Consult to Cardiology [CONS] Stat Comment: Consulting Provider: Cardiology Allyssa Reason for Consult: NSTEMI Time Notified: 13:33 Call Completed: Yes 01/03/19 16:21 Consult to Psychology [CONS] Routine Consulting Provider: Sameera Molina Reason for Consult: medical decision making capacity Call Completed: Yes 01/03/19 16:53 Consult to Cardiac Rehabilitation-Phase1 [CONS] Routine Comment: Reason for Consult: heart failure Call Completed: Yes Consult to Nurse Navigator [CONS] Routine Comment: 01/04/19 09:25 Consult to Psychiatry [CONS] Routine Consulting Provider: Psychiatry Allyssa Reason consult: Capacity assessment Other reason and/or additional details: Medical decision making capacity 01/05/19 09:21 Consult to Occupational Therapy [CONS] Routine Comment: Evaluate, develop and implement POC Reason for Consult: Evaluate and develop plan for discharge Does patient have active BEDREST order?: No Is patient medically & hemodynamically stable?: Yes Consult to Physical Therapy [CONS] Routine Comment: Evaluate, develop and implement POC Reason for Consult: Evaluate and plan for discharge Does patient have active BEDREST order?: No Is patient medically & hemodynamically stable?: Yes 01/06/19 14:24 Consult to Nurse Navigator [CONS] Routine Comment: - Constitutional Vitals: Temp Pulse Resp BP Pulse Ox 97.7 F 106 12 115/70 92 01/08/19 06:36 01/08/19 06:36 01/08/19 10:44 01/08/19 06:36 01/08/19 10:44 General appearance: Present: A&O X 3, no acute distress Exam: General appearance: Present: A&O X 3, no acute distress Exam: Head exam: Present: atraumatic, normocephalic Eye exam: Present: PERRL, conjuntiva pink, sclera anicteric Pupils: Present: PERRL Neck exam general surgery: Present: supple, trachea midline. Absent: lymphadenopathy Respiratory exam: Absent: accessory muscle use, CTAB, rales, rhonchi, wheezes Additional comments: Bibasilar crackles Cardiovascular exam: Present: RRR, +S1, +S2. Absent: diastolic murmur, gallop, rubs, systolic murmur GI/Abdominal exam: Present: normal bowel sounds, soft, no peritoneal signs. Absent: distended, tenderness Extremities exam: Present: warm, radial pulses palpable and symmetrical. Absent: pedal edema, calf tenderness, cyanotic Additional comments: LE extremity dry and skin sloughing off. Neurological exam: Present: CN II-XII intact, oriented X3, no focal deficits. Absent: pronater drift, facial droop, speech deficit Skin exam: Present: dry, intact - Patient Status Disposition: Home, Self-Care Condition: Good - Discharge Instructions Instructions: Heart Failure (DC), Chronic Obstructive Pulmonary Disease (DC), Chronic Hypertension (DC), Pneumonia (DC) Follow Up With: Bryan Dang DO [Partnered Physician] - (patient has not been to Dr. Duff office since 2012 they will call the patient directly and talk with her about a hospital follow up .....per Nadine) Forms: ED Satisfaction Letter
[2019-01-08] MEDS ORDERED: Ipratropium/Albuterol Neb 3 ML IH PRN (11:06)
== END 2019-01-08 16:13 | disposition home or self-care (01) | DRG 280 ==
LOC: 2NENU 10:29 → EMEROOARM 10:29 → 2NENU 14:49
PROVIDERS: ADMIT Internal Medicine Nephrology; ATTEND Internal Medicine Nephrology